=== PATIENT | male | born 1975 | race Caucasian/White ===

== ENCOUNTER 2022-02-14 11:46 | Inpatient (IN) | payer OTHER ==
[~2022-02-14] VITALS: Ht 172.7 cm; Wt 71.2 kg
--- NOTE | 2022-02-14 11:50 | NUR ---
RECIEVED PT 46 YRS MALE FROM [facility] BP AFTER COMPLET HD FOR TODAY SCHDULE FRIDAY , FRIDAY AND FRIDAY NO SOB OR CHEST PAIN OR DICOMFOR NOTED PERMACHTHTER ON LT SUBCLEAVIAN CLEAN WITH DRESSING INTACT AND HAMILTON
--- NOTE | 2022-02-14 12:00 | NUR ---
LT TOES AMPUTATION AND DRESSING INTCT AND DRY AND RT FOOT WOUND DRESSING DRANING
[2022-02-14 12:23] LABS: BASOPHILS # (AUTO) 0.1 K/uL (0.0-0.2); HEMATOCRIT 33 % (39-51); HEMOGLOBIN 10.4 g/dL (13.5-17.5); LYMPHOCYTES # (AUTO) 0.8 K/uL (0.8-4.8); LYMPHOCYTES % (AUTO) 13.7 % (20.0-44.0); MEAN CORPUSCULAR HGB CONC 31 g/dl (31.0-36.0); MEAN CORPUSCULAR VOLUME 93 fL (80-96); MONOCYTES # (AUTO) 0.4 K/uL (0.1-1.30); MONOCYTES % (AUTO) 6.3 % (2.0-12.0); NEUTROPHILS # (AUTO) 4.6 K/uL (1.8-8.9); PLATELET COUNT (AUTO) 182 K/uL (150-450); RED BLOOD CELL COUNT(AUTO) 3.55 MIL/uL (4.5-6.0); WHITE BLOOD COUNT (AUTO) 5.9 K/uL (4.3-11.0)
[2022-02-14 12:35] LABS: CALCIUM, SERUM 8.2 mg/dL (8.5-10.1); CREATININE 3.4 mg/dL (0.6-1.3); POTASSIUM 3.8 mmol/L (3.5-5.1)
[2022-02-14] MEDS ORDERED: FOLI0.8T23 PO (12:40)
[2022-02-14] MEDS ORDERED: TAMS-12 PO (12:40)
[2022-02-14] MEDS ORDERED: CALC667T2 PO (12:40)
[2022-02-14] MEDS ORDERED: LOSA50TA39 PO (12:40)
[2022-02-14] MEDS ORDERED: HYDR-4077 PO (12:40)
[2022-02-14] MEDS ORDERED: METF1000 PO (12:40)
[2022-02-14] MEDS ORDERED: PATI8.4P PO (12:40)
--- NOTE | 2022-02-14 13:00 | NUR ---
TONEY MACHADO SEND TO LAB
[2022-02-14] MEDS ORDERED: METO-357 PO (13:01)
[2022-02-14] MEDS ORDERED: ASCO500C17 PO (13:01)
[2022-02-14] MEDS ORDERED: POLY17PO4 PO (13:01)
[2022-02-14] MEDS ORDERED: SENN-18 PO (13:01)
[2022-02-14] MEDS ORDERED: ATOR40TA PO (13:01)
[2022-02-14] MEDS ORDERED: ASPI-1169 PO (13:01)
[2022-02-14] MEDS ORDERED: ZINC220T4 PO (13:01)
[2022-02-14] MEDS ORDERED: AMIN887L PO (13:01)
--- NOTE | 2022-02-14 13:13 | NUR ---
MOVE SHEET SUBMITTED.
[2022-02-14] MEDS ORDERED: hydrALAZINE HCL IV 20 MG VIAL IV ONE ×2 (13:30→14:00)
[2022-02-14] MEDS ORDERED: hydrALAZINE HCL IV 20 MG VIAL ONE (13:40)
--- NOTE | 2022-02-14 14:00 | NUR ---
RESTING CONTENUE AND MONITER PT VS PT AWAKE AND ALERT NO PAIN
--- NOTE | 2022-02-14 15:14 | NUR ---
WATING FOR HOSPITAL BED RESTING AT HIS TIME
--- NOTE | 2022-02-14 16:25 | NUR ---
PT CONDITION STABLE AWAKE AND FALLOW COMMAND
[2022-02-14] MEDS ORDERED: ACETAMINOPHEN 325 MG TABLET PO PRN (17:00)
[2022-02-14] MEDS ORDERED: Z GUARD REMEDY 4 OZ OINT TP PRN (17:00)
[2022-02-14] MEDS ORDERED: MAG HYDROX/AL HYDROX/SIMETH 30 ML UDC PO PRN (17:00)
[2022-02-14] MEDS ORDERED: METOPROLOL SUCCINATE 25 MG TAB.SR.24H PO SCH (17:00)
[2022-02-14] MEDS ORDERED: ONDANSETRON HCL/PF 4 MG/2 ML VIAL IVP PRN (17:00)
[2022-02-14] MEDS ORDERED: MAGNESIUM HYDROXIDE 30 ML UDC PO PRN (17:00)
[2022-02-14] MEDS ORDERED: LOSARTAN POTASSIUM 50 MG TABLET PO SCH (17:00)
--- NOTE | 2022-02-14 17:25 | NUR ---
WATING FOR TLEMETERY BED CONTENUE OBSERVE BP
[2022-02-14] MEDS ORDERED: hydrALAZINE HCL 50 MG TABLET PO SCH (18:00)
[2022-02-14] MEDS ORDERED: TOPIRAMATE 25 MG TABLET ONE (18:08)
[2022-02-14] MEDS: hydrALAZINE HCL 50 MG TABLET PO SCH ×2 (18:44→21:21)
[2022-02-14] MEDS: VALSARTAN 80 MG TABLET PO SCH (18:45)
--- NOTE | 2022-02-14 18:45 | NUR ---
ECCHOCRDOIGRAM DONE AT BED SIDE
[2022-02-14] MEDS: NITROGLYCERIN 30 GM TUBE TP SCH ×2 (18:46→21:20)
--- NOTE | 2022-02-14 18:50 | NUR ---
HAND OFF TO JEFFI RN TO ROOM 320-2 VIA GARNY BP STILL ON HIGH SIDE NO CHEST PAIN NO SOB
--- NOTE | 2022-02-14 19:30 | NUR ---
TELE/RN ADMITTING NOTE RECEIVED REPORT FROM SERGEY DOS SANTOS. PATIENT ARRIVED TO UNIT AT APPROX. 1930 VIA GURNEY AND 2 STAFF MEMBERS. PATIENT IS BEING ADMITTED WITH DX OF HTN URGENCY. PATIENT IS ALERT AND ORIENTED X 3-4. FORGETFUL AT TIMES. CONTINUES ON ROOM AIR WITH NO S/SX OF RESPIRATORY DISTRESS NOTED. IV ACCESS TO LEFT HAND #20G INTACT, PATENT AND SALINE LOCKED. WENCESLAO CATH NOTED TO RIGHT CHEST WALL FOR HD. DRESSING IS C/D/I. SKIN CHECK PERFORMED ON ADMISSION WITH WOUNDS NOTED TO RIGHT FOOT AND LEFT FOOT. DRESSINGS CHANGED AND ORDER PLACED FOR WOUND CONSULT. PATIENT ORIENTED TO ROOM, CALL LIGHT AND UNIT. TELE MONITOR PLACED WITH CURRENT READING SR. CALL LIGHT WITHIN REACH. ASPIRATION, FALL AND SAFETY PRECAUTIONS MAINTAINED. ALL NEEDS ATTENDED TO AT THIS TIME.
[2022-02-14 20:00] VITALS: BP 183/85
[2022-02-14] MEDS: SENNOSIDES 8.6 MG TABLET PO SCH (21:21)
[2022-02-14] MEDS: ATORVASTATIN 40 MG TABLET PO SCH (21:21)
[2022-02-14] MEDS: TAMSULOSIN 0.4 MG CAP.SR.24H PO SCH (21:21)
[2022-02-14] MEDS: hydrALAZINE HCL IV 20 MG VIAL IV PRN (23:54)
--- NOTE | 2022-02-15 00:03 | NUR ---
TELE/RN NOTE PATIENT CONTINUES WITH HIGH BP. CURRENT BP 177/82 - WILL ADMINISTER PRN IV HYDRALAZINE PER MD ORDERS.
[2022-02-15 01:00] VITALS: BP 166/72
[2022-02-15] MEDS: hydrALAZINE HCL 50 MG TABLET PO SCH ×4 (04:38→18:36)
[2022-02-15 06:14] LABS: CALCIUM, SERUM 8.1 mg/dL (8.5-10.1); CREATININE 4.3 mg/dL (0.6-1.3); MAGNESIUM 2.5 mg/dL (1.8-2.4); PHOSPHORUS 3.9 mg/dL (2.5-4.9); POTASSIUM 4.7 mmol/L (3.5-5.1)
[2022-02-15 06:36] LABS: BASOPHILS # (AUTO) 0.1 K/uL (0.0-0.2); BASOPHILS % (AUTO) 0.8 % (0.0-2.0); EOSINOPHILS % (AUTO) 0.7 % (0.0-6.0); HEMATOCRIT 33 % (39-51); HEMOGLOBIN 10.3 g/dL (13.5-17.5); LYMPHOCYTES # (AUTO) 0.9 K/uL (0.8-4.8); LYMPHOCYTES % (AUTO) 11.9 % (20.0-44.0); MEAN CORPUSCULAR HGB CONC 31 g/dl (31.0-36.0); MEAN CORPUSCULAR VOLUME 94 fL (80-96); MONOCYTES # (AUTO) 0.5 K/uL (0.1-1.30); MONOCYTES % (AUTO) 6.2 % (2.0-12.0); NEUTROPHILS % (AUTO) 80.4 % (43.0-81.0); PLATELET COUNT (AUTO) 202 K/uL (150-450); RED BLOOD CELL COUNT(AUTO) 3.49 MIL/uL (4.5-6.0); WHITE BLOOD COUNT (AUTO) 7.5 K/uL (4.3-11.0)
--- NOTE | 2022-02-15 06:40 | NUR ---
TELE/RN CLOSING NOTE PATIENT CURRENTLY SLEEPING IN BED. ALERT AND ORIENTED X 3. ABLE TO MAKE NEEDS KNOWN. DENIES PAIN AT THIS TIME. CONTINUES ON ROOM AIR WITH NO S/SX OF RESPIRATORY DISTRESS NOTED. IV ACCESS TO RIGHT HAND #20G INTACT, PATENT AND SALINE LOCKED. RIGHT CHEST WALL WENCESLAO CATH IN PLACE FOR HD. TELE MONITOR IN PLACE WITH CURRENT READING SR HR 64. CALL LIGHT WITHIN REACH. ASPIRATION, FALL AND SAFETY PRECAUTIONS MAINTAINED. WILL ENDORSE PLAN OF CARE TO ONCOMING SHIFT.
--- NOTE | 2022-02-15 07:46 | NUR ---
RN OPENING NOTE- PT SLEEPING IN BED. AWAKENED EASILY, ALERT AND ORIENTED X 3. ABLE TO MAKE NEEDS KNOWN. DENIES PAIN AT THIS TIME. CONTINUES ON ROOM AIR WITH NO S/SX OF RESPIRATORY DISTRESS NOTED. IV ACCESS TO RIGHT HAND #20G INTACT. RIGHT CHEST WALL WENCESLAO CATH IN PLACE FOR HD. TELE MONITOR IN PLACE WITH CURRENT READING SR HR 70. CALL LIGHT WITHIN REACH. ASPIRATION, FALL AND SAFETY PRECAUTIONS MAINTAINED. MONITOR / ASSIST
--- NOTE | 2022-02-15 08:38 | NUR ---
WOUND CARE CONSULT: PT EATING AT THIS TIME. REVIEWED CHART, NURSING DOCUMENTATION AND PHOTOS WHICH INDICATE BILATERAL LOWER EXTREMITY WOUNDS, PRESENT ON ADMISSION. DR ISSA NOTIFIED OF DPM CONSULT REQUEST. RECOMMENDATIONS MADE FOR SKIN PROTECTION. DISCUSSED WITH NURSING STAFF.
[2022-02-15] MEDS: NIFEdipine XL (30MG) 30 MG TAB PO SCH (09:25)
[2022-02-15] MEDS: POLYETHYLENE GLYCOL 3350 17 GM POWD.PACK PO SCH (09:25)
[2022-02-15] MEDS: ASPIRIN 81 MG TAB.CHEW PO SCH (09:25)
[2022-02-15] MEDS: METOPROLOL SUCCINATE 25 MG TAB.SR.24H PO SCH (09:26)
[2022-02-15] MEDS: NITROGLYCERIN 30 GM TUBE TP SCH ×2 (09:28→21:29)
[2022-02-15] MEDS: VALSARTAN 80 MG TABLET PO SCH (09:39)
--- NOTE | 2022-02-15 16:32 | NUR ---
RN NOTE- PT WOUND CARE COMPLETED PER ORDERS TO BILATERAL FOOT WOUNDS. TOLERATED WELL.
--- NOTE | 2022-02-15 18:56 | NUR ---
RN CLOSING NOTE- PT SLEEPING IN BED. ALERT AND ORIENTED X 3. ABLE TO MAKE NEEDS KNOWN. DENIES PAIN AT THIS TIME. CONTINUES ON ROOM AIR WITH NO S/SX OF RESPIRATORY DISTRESS NOTED. IV ACCESS TO RIGHT HAND #20G INTACT. RIGHT CHEST WALL WENCESLAO CATH IN PLACE FOR HD. HD TODAY - 2 LITRES REMOVED. TELE MONITOR IN PLACE WITH CURRENT READING SR HR 75. NPO AFTER MN, FOR WOUND DEBRIDEMENT IN AM. CALL LIGHT WITHIN REACH. ASPIRATION, FALL AND SAFETY PRECAUTIONS MAINTAINED. MONITOR / ASSIST
--- NOTE | 2022-02-15 19:20 | NUR ---
TELE/RN OPENING NOTE RECEIVED PATIENT RESTING IN BED. OBTUNDED AT BASELINE. NO S/SX OF RESPIRATORY DISTRESS NOTED. IV ACCESS TO RIGHT HAND #20G INTACT, PATENT AND SALINE LOCKED. CONTINUES ON TELE MONITOR WITH CURRENT READING SR. PATIENT TO BE NPO POST MIDNIGHT FOR PLANNED PROCEDURE IN AM. PATIENT AWARE AND AGREEABLE. CONSENT IN CHART. CALL LIGHT WITHIN REACH. ASPIRATION, FALL AND SAFETY PRECAUTIONS MAINTAINED. ALL NEEDS ATTENDED TO AT THIS TIME. Addendum: 02/16/22 at 0653 by CLARA NOLEN RN CORRECTION: PATIENT IS ALERT AND ORIENTED X 2-3. ABLE TO MAKE NEEDS KNOWN.
[2022-02-15 19:55] VITALS: BP 148/68
--- NOTE | 2022-02-15 21:00 | NUR ---
TELE/RN NOTE MRI CHECKLIST COMPLETED WITH PATIENT AND PLACED IN CHART.
[2022-02-15] MEDS: ATORVASTATIN 40 MG TABLET PO SCH (21:28)
[2022-02-15] MEDS: TAMSULOSIN 0.4 MG CAP.SR.24H PO SCH (21:28)
[2022-02-15] MEDS: SENNOSIDES 8.6 MG TABLET PO SCH (21:28)
[2022-02-16 00:30] VITALS: BP 140/62
[2022-02-16] MEDS: hydrALAZINE HCL 50 MG TABLET PO SCH ×4 (05:37→17:41)
--- NOTE | 2022-02-16 06:20 | NUR ---
TELE/RN CLOSING NOTE PATIENT CURRENTLY SLEEPING IN BED. ALERT AND ORIENTED X 2-3. CONTINUES ON ROOM AIR WITH NO S/SX OF RESPIRATORY DISTRESS NOTED. IV ACCESS TO RIGHT HAND #20G INTACT, PATENT AND SALINE LOCKED. CONTINUES ON TELE MONITOR WITH CURRENT READING SR. PATIENT HAS BEEN NPO SINCE MIDNIGHT FOR PLANNED PROCEDURE IN AM. CALL LIGHT WITHIN REACH. ASPIRATION, FALL AND SAFETY PRECAUTIONS MAINTAINED. WILL ENDORSE PLAN OF CARE TO ONCOMING SHIFT RN.
--- NOTE | 2022-02-16 07:57 | NUR ---
MS RN OPENING NOTES RECEIVED PATIENT CURRENTLY SLEEPING IN BED, EASILY AWAKEN. ALERT AND ORIENTED X2. ON ROOM AIR WITH NO S/SX OF RESPIRATORY DISTRESS NOTED. IV ACCESS TO RIGHT HAND #20G INTACT, PATENT AND SALINE LOCKED. PATIENT HAS BEEN NPO SINCE MIDNIGHT FOR PLANNED PROCEDURE IN AM. SAFETY PRECAUTIONS IN PLACE; BED IN LOW POSITION AND LOCKED, RAILS UP X2, CALL LIGHT WITHIN REACH. WILL CONTINUE TO MONITOR PATIENT.
[2022-02-16 08:00] VITALS: BP 177/74
[2022-02-16] MEDS: NIFEdipine XL (30MG) 30 MG TAB PO SCH (09:00)
[2022-02-16] MEDS: POLYETHYLENE GLYCOL 3350 17 GM POWD.PACK PO SCH (09:00)
[2022-02-16] MEDS: METOPROLOL SUCCINATE 25 MG TAB.SR.24H PO SCH (09:00)
[2022-02-16] MEDS: ASPIRIN 81 MG TAB.CHEW PO SCH (09:00)
[2022-02-16] MEDS: VALSARTAN 80 MG TABLET PO SCH (09:00)
[2022-02-16] MEDS: NITROGLYCERIN 30 GM TUBE TP SCH ×2 (10:10→21:43)
--- NOTE | 2022-02-16 12:25 | NUR ---
MS RN NOTES PATIENT IS CURRENTLY ON DIALYSIS AT THIS TIME. BP MEDS HELD.
[2022-02-16 16:00] VITALS: BP 181/92
[2022-02-16] MEDS: hydrALAZINE HCL IV 20 MG VIAL IV PRN ×2 (16:11→21:09)
--- NOTE | 2022-02-16 16:31 | NUR ---
MS RN NOTES PATIENT FINISHED DIALYSIS. PER HD NURSE, TOLERATED WELL; 2 L REMOVED. BP STILL HIGH 181/94 HR 67 PRN HYDRALAZINE 20MG/1ML ADMINISTERED. WILL REASSESS.
--- NOTE | 2022-02-16 19:29 | NUR ---
MS RN CLOSING NOTES PATIENT CURRENTLY SLEEPING IN BED, EASILY AWAKEN. ALERT AND ORIENTED X2. ON ROOM AIR WITH NO S/SX OF RESPIRATORY DISTRESS NOTED DURING THE SHIFT. IV ACCESS TO RIGHT WRISTG #22 INTACT, PATENT AND SALINE LOCKED. RCW PERMA CATH IN PLACE. ALL NEEDS ATTENDED DURING THE DAY. SAFETY PRECAUTIONS IN PLACE; BED IN LOW POSITION AND LOCKED, RAILS UP X2, CALL LIGHT WITHIN REACH. ENDORSED TO SUSTAINABILITY EXECUTIVE DIRECTOR NURSE FOR SHANNON.
[2022-02-16 20:00] VITALS: BP 177/99
--- NOTE | 2022-02-16 20:23 | NUR ---
MS RN OPENING NOTES: RECEIVED PATIENT SLEEP IN BED COMFORTABLY, BED IN LOW POSITION, CALL LIGHTS WITHIN REACH, NO COMPLAIN OF PAIN AND DISCOMFORT AT THIS TIME, ON ROOM AIR SATURATING WELL, WITH IV LINE AT RWRIST #22 SL, WITH RCW WENCESLAO CATH HD DONE WITH 2 LITERS REMOVED, PATIENT KEPT CLEAN AND DRY ALL NEEDS MET WILL CONTINUE TO MONITOR.
[2022-02-16] MEDS: ATORVASTATIN 40 MG TABLET PO SCH (21:43)
[2022-02-16] MEDS: SENNOSIDES 8.6 MG TABLET PO SCH (21:43)
[2022-02-16] MEDS: TAMSULOSIN 0.4 MG CAP.SR.24H PO SCH (21:44)
[2022-02-17] MEDS: hydrALAZINE HCL 50 MG TABLET PO SCH ×4 (00:23→18:14)
[2022-02-17] MEDS: hydrALAZINE HCL IV 20 MG VIAL IV PRN (03:54)
[2022-02-17 05:57] LABS: BASOPHILS % (AUTO) 0.6 % (0.0-2.0); EOSINOPHILS % (AUTO) 0.5 % (0.0-6.0); HEMATOCRIT 34 % (39-51); LYMPHOCYTES # (AUTO) 0.8 K/uL (0.8-4.8); LYMPHOCYTES % (AUTO) 10.3 % (20.0-44.0); MEAN CORPUSCULAR HGB CONC 33 g/dl (31.0-36.0); MEAN CORPUSCULAR VOLUME 91 fL (80-96); MONOCYTES # (AUTO) 0.5 K/uL (0.1-1.30); MONOCYTES % (AUTO) 6.7 % (2.0-12.0); NEUTROPHILS # (AUTO) 6.3 K/uL (1.8-8.9); NEUTROPHILS % (AUTO) 81.9 % (43.0-81.0); PLATELET COUNT (AUTO) 207 K/uL (150-450); RED BLOOD CELL COUNT(AUTO) 3.72 MIL/uL (4.5-6.0); WHITE BLOOD COUNT (AUTO) 7.7 K/uL (4.3-11.0)
[2022-02-17 06:08] LABS: CALCIUM, SERUM 7.8 mg/dL (8.5-10.1); CREATININE 3.3 mg/dL (0.6-1.3); POTASSIUM 4.3 mmol/L (3.5-5.1)
--- NOTE | 2022-02-17 06:35 | NUR ---
RN CLOSING NOTES: PATIENT SLEEP IN BED COMFORTABLY, AROUSABLE TO VERBAL STIMULI, BED IN LOW POSITION, CALL LIGHTS WITHIN REACH, NO COMPLAIN OF PAIN AND DISCOMFORT AT THIS TIME, ON ROOM AIR SATURATING WELL, WITH IV LINE AT RT WRIST #22 SL, WITH RT CHEST WALL WENCESLAO CATH DIALYSIS DONE YESTERDAY WITH 2LTR OUTPUT, PATIENT HAS BILATERAL EYE BLINDNESS, BUT ABLE TO COOPERATE,KEPT CLEAN AND DRY ALL NEEDS MET, ENDORSE TO INCOMING SHIFT.
--- NOTE | 2022-02-17 07:00 | NUR ---
MS RN OPENING NOTES PATIENT LAYING IN BED, A/O X 4, ABLE TO MAKE NEEDS KNOWN. R WRIST 22G SL CLEAN, INTACT, AND FLUSHING WELL. TOLERATING WELL ON ROOM AIR WITH NO S/S RESPIRATORY DISTRESS OR SOB. NO COMPLAINTS OF PAIN OR DISCOMFORT AT THIS TIME. SAFETY MEASURES IN PLACE: BED IN LOWEST LOCKED POSITION, SIDE RAILS UP X 2, CALL LIGHT WITHIN REACH. WILL CONTINUE TO MONITOR.
[2022-02-17 08:00] VITALS: BP 181/85
[2022-02-17] MEDS: NIFEdipine XL (30MG) 30 MG TAB PO SCH (08:17)
[2022-02-17] MEDS: METOPROLOL SUCCINATE 25 MG TAB.SR.24H PO SCH (08:18)
[2022-02-17] MEDS: POLYETHYLENE GLYCOL 3350 17 GM POWD.PACK PO SCH (08:18)
[2022-02-17] MEDS: VALSARTAN 80 MG TABLET PO SCH (08:19)
[2022-02-17] MEDS: ASPIRIN 81 MG TAB.CHEW PO SCH (08:19)
[2022-02-17] MEDS: NITROGLYCERIN 30 GM TUBE TP SCH ×2 (08:32→21:46)
--- NOTE | 2022-02-17 09:12 | NUR ---
RN NOTES PATIENT NOTED WITH BP OF 181/85, HR 78 THIS MORNING. ALL MEDICATIONS ADMINISTERED ORDERED.
--- NOTE | 2022-02-17 19:00 | NUR ---
MS RN CLOSING NOTES PATIENT LAYING IN BED, A/O X 4, ABLE TO MAKE NEEDS KNOWN. R WRIST 22G SL CLEAN, INTACT, AND FLUSHING WELL. TOLERATING WELL ON ROOM AIR WITH NO S/S RESPIRATORY DISTRESS OR SOB. NO COMPLAINTS OF PAIN OR DISCOMFORT AT THIS TIME. SAFETY MEASURES IN PLACE: BED IN LOWEST LOCKED POSITION, SIDE RAILS UP X 2, CALL LIGHT WITHIN REACH. ALL NEEDS MET. WILL ENDORSE TO BOW MAKER CUSTOM FOR SHANNON.
[2022-02-17 20:00] VITALS: BP 133/72
--- NOTE | 2022-02-17 20:24 | NUR ---
MS RN OPENING NOTES: RECEIVED PATIENT SLEEP IN BED COMFORTABLY, AROUSABLE TO VERBAL STIMULI, BED IN LOW POSITION, CALL LIGHTS WITHIN REACH, NO COMPLAIN OF PAIN AND DISCOMFORT AT THIS TIME, PATIENT IS A/OX2-3, BLIND ON BED REST, WITH IV LINE AT R WRIST #22SL AND RCW HD PORTACATH, CLEAN AND NO BLEEDING WAS OBSERVED, PATIENT KEPT CLEAN AND DRY ALL NEEDS MET WILL CONTINUE TO MONITOR.
[2022-02-17] MEDS: TAMSULOSIN 0.4 MG CAP.SR.24H PO SCH (21:46)
[2022-02-17] MEDS: ATORVASTATIN 40 MG TABLET PO SCH (21:46)
[2022-02-17] MEDS: SENNOSIDES 8.6 MG TABLET PO SCH (21:46)
[2022-02-18] MEDS: hydrALAZINE HCL 50 MG TABLET PO SCH ×4 (00:12→17:22)
--- NOTE | 2022-02-18 07:29 | NUR ---
RN OPENING NOTE: PATIENT ASLEEP IN BED, AWAKENS EASILY, AO X PERSON PLACE, BED IN LOW POSITION, CALL LIGHT WITHIN REACH, NO COMPLAINT OF PAIN, IV LINE AT R WRIST #22SL AND RCW HD PORTACATH, CLEAN AND NO BLEEDING WAS OBSERVED, PATIENT KEPT CLEAN AND DRY ALL NEEDS MET WILL CONTINUE TO MONITOR / ASSIST
[2022-02-18 08:00] VITALS: BP 158/79
[2022-02-18] MEDS: ASPIRIN 81 MG TAB.CHEW PO SCH (08:47)
[2022-02-18] MEDS: POLYETHYLENE GLYCOL 3350 17 GM POWD.PACK PO SCH (08:47)
[2022-02-18] MEDS: VALSARTAN 80 MG TABLET PO SCH (08:48)
[2022-02-18] MEDS: NIFEdipine XL (30MG) 30 MG TAB PO SCH (08:48)
[2022-02-18] MEDS: METOPROLOL SUCCINATE 25 MG TAB.SR.24H PO SCH (08:48)
[2022-02-18] MEDS: NITROGLYCERIN 30 GM TUBE TP SCH ×2 (08:49→21:35)
[2022-02-18] MEDS ORDERED: NIFEdipine XL (30MG) 30 MG TAB PO SCH (10:00)
[2022-02-18 16:00] VITALS: BP 162/75
--- NOTE | 2022-02-18 16:13 | NUR ---
RN NOTE-WOUND CARE TO BILATERAL FEET COMPLETED PER ORDERS. TOLERATED WELL.
--- NOTE | 2022-02-18 18:42 | NUR ---
RN CLOSING NOTE: PATIENT QUIET, ORIENTED X PERSON PLACE, BED IN LOW POSITION, CALL LIGHT WITHIN REACH, NO COMPLAINT OF PAIN, IV LINE AT R WRIST #22SL AND RCW HD PORTACATH, PATIENT KEPT CLEAN AND DRY ALL NEEDS MET WILL CONTINUE TO MONITOR / ASSIST
--- NOTE | 2022-02-18 19:15 | NUR ---
RN NOTE PT RESTING IN BED, A/OX2, DENIES PAIN AT THIS TIME. RESPIRATIONS EVEN/UNLABORED. IV SITE: R-HAND #22G INTACT/PATENT/FLUSHES WELL. RCW HD CATH IN PLACE/DRESSING INTACT. PT IN NO ACUTE DISTRESS. SAFETY MEASURES IN PLACE, BED IN LOWEST LOCKED POSITION, S/R UPX2, CALL LIGHT WITHIN REACH. WILL CONT TO MONITOR.
[2022-02-18 20:00] VITALS: BP 122/63
[2022-02-18] MEDS: ATORVASTATIN 40 MG TABLET PO SCH (21:34)
[2022-02-18] MEDS: SENNOSIDES 8.6 MG TABLET PO SCH (21:34)
[2022-02-18] MEDS: TAMSULOSIN 0.4 MG CAP.SR.24H PO SCH (21:34)
[2022-02-19] MEDS: hydrALAZINE HCL 50 MG TABLET PO SCH ×4 (00:41→17:07)
[2022-02-19 06:16] LABS: BASOPHILS # (AUTO) 0.1 K/uL (0.0-0.2); BASOPHILS % (AUTO) 0.9 % (0.0-2.0); EOSINOPHILS % (AUTO) 0.8 % (0.0-6.0); HEMATOCRIT 33 % (39-51); HEMOGLOBIN 10.8 g/dL (13.5-17.5); LYMPHOCYTES # (AUTO) 1.1 K/uL (0.8-4.8); LYMPHOCYTES % (AUTO) 16.5 % (20.0-44.0); MEAN CORPUSCULAR HGB CONC 33 g/dl (31.0-36.0); MEAN CORPUSCULAR VOLUME 92 fL (80-96); MONOCYTES # (AUTO) 0.6 K/uL (0.1-1.30); MONOCYTES % (AUTO) 8.5 % (2.0-12.0); NEUTROPHILS # (AUTO) 4.9 K/uL (1.8-8.9); NEUTROPHILS % (AUTO) 73.3 % (43.0-81.0); PLATELET COUNT (AUTO) 208 K/uL (150-450); RED BLOOD CELL COUNT(AUTO) 3.58 MIL/uL (4.5-6.0); WHITE BLOOD COUNT (AUTO) 6.7 K/uL (4.3-11.0)
[2022-02-19 06:22] LABS: CALCIUM, SERUM 8.4 mg/dL (8.5-10.1); CREATININE 5.8 mg/dL (0.6-1.3); POTASSIUM 4.4 mmol/L (3.5-5.1)
--- NOTE | 2022-02-19 06:52 | NUR ---
RN NOTE PT RESTING IN BED, EASILY AROUSABLE TO STIMULI. NO C/O PAIN AT THIS TIME. PT SLEPT WELL DURING THE NIGHT WITHOUT ANY DISTRESS. ALL NEEDS ATTENDED TO. SAFETY MEASURES MAINTAINED.
--- NOTE | 2022-02-19 07:40 | NUR ---
MS RN OPENING NOTES RECEIVED PT SLEEPING IN BED, A/O X4. PATIENT IS EASILY AROUSABLE TO ANY STIMULI. NO S/S OF DISCOMFORT, AND PAIN AT THIS MOMENT. PT IS IN ROOM AIR, AND NO SIGNS OF DISTRESS AT THIS TIME. SAFETY MEASURES INITIATED. WILL CONTINUE TO MONITOR FOR SHANNON.
[2022-02-19 08:00] VITALS: BP 167/73
[2022-02-19] MEDS: VALSARTAN 80 MG TABLET PO SCH ×2 (09:00→10:12)
[2022-02-19] MEDS: NIFEdipine XL (30MG) 30 MG TAB PO SCH ×2 (09:00→10:11)
[2022-02-19] MEDS: NITROGLYCERIN 30 GM TUBE TP SCH ×3 (09:00→21:17)
[2022-02-19] MEDS: METOPROLOL SUCCINATE 25 MG TAB.SR.24H PO SCH ×3 (09:00→16:33)
[2022-02-19] MEDS: POLYETHYLENE GLYCOL 3350 17 GM POWD.PACK PO SCH (10:12)
[2022-02-19] MEDS: ASPIRIN 81 MG TAB.CHEW PO SCH (10:13)
--- NOTE | 2022-02-19 10:27 | NUR ---
MS RN NOTE AM B/P MEDS ARE NOT GIVEN D/T PATIENT CURRENTLY IN DIALYSIS.
--- NOTE | 2022-02-19 12:38 | NUR ---
MS RN NOTES B/P MED CANNOT BE ADMINISTERED, PATIENT IS CURRENTLY DOING A DIALYSIS.
[2022-02-19 16:00] VITALS: BP 183/83
[2022-02-19] MEDS ORDERED: IV NS 0.9% 0 ML IV ONE (17:36)
[2022-02-19] MEDS ORDERED: IOHEXOL-350 100 ML VIAL IV ONE (17:36)
[2022-02-19] MEDS ORDERED: METOPROLOL TARTRATE INJ 5 MG/5 ML AMPUL ONE (17:45)
[2022-02-19] MEDS ORDERED: NITROGLYCERIN 0.4 MG/TAB BOTTLE ONE (17:45)
--- NOTE | 2022-02-19 17:51 | NUR ---
MS RN NOTES PATIENT GO FOR CT ANGIOGRAM HEART @1750.
--- NOTE | 2022-02-19 17:58 | NUR ---
CTA NOTES PATIENT REFUSED CTA PROCEDURE PER MD ORDERED. EXPLAINED RISK AND BENEFIT X3 WITH DELIO, PRESSER FIRST. PUNEET ROBERT AWARE.
--- NOTE | 2022-02-19 19:38 | NUR ---
MS RN OPENING NOTES PATIENT RECEIVED SLEEPING IN BED COMFORTABLY, BREATHING EVEN AND UNLABORED; NO SOB NOTED; NO DISTRESS NOTED; PATIENT EASILY AROUSABLE, A/OX3; PATIENT ABLE TO MAKE NEEDS KNOWN; PATIENT IS BLIND; PER AM SHIFT, UNSURE IF CONSENTS SIGNED FOR PROCEDURE OF DEBRIDEMENT OF WOUNDS; WILL FOLLOW UP; PATIENT CURRENTLY NPO; R AC #20 INTACT AND PATENT, RCW HD CATH NOTED; SAFETY PRECAUTIONS IMPLEMENTED; BED LOCKED IN LOW POSITION; SIDE RAILSX2, CALL LIGHT WITHIN REACH; WILL CONT TO MONITOR
--- NOTE | 2022-02-19 19:52 | NUR ---
MS RN CLOSING NOTES PATIENT LAYING IN BED, A/O X 4, ABLE TO MAKE NEEDS KNOWN. R AC 20G SL CLEAN, INTACT, AND FLUSHING WELL. TOLERATING WELL ON ROOM AIR WITH NO S/S RESPIRATORY DISTRESS OR SOB. NO COMPLAINTS OF PAIN OR DISCOMFORT AT THIS TIME. PATIENT REFUSED CT ANGIO HEART PROCEDURE. SAFETY MEASURES IN PLACE: BED IN LOWEST LOCKED POSITION, SIDE RAILS UP X 2, CALL LIGHT WITHIN REACH. ALL NEEDS MET. WILL ENDORSE TO WEB CONTENT EXECUTIVE FOR SHANNON.
[2022-02-19 20:00] VITALS: BP 167/83
[2022-02-19] MEDS: ATORVASTATIN 40 MG TABLET PO SCH (21:17)
[2022-02-19] MEDS: TAMSULOSIN 0.4 MG CAP.SR.24H PO SCH (21:17)
[2022-02-19] MEDS: SENNOSIDES 8.6 MG TABLET PO SCH (21:17)
--- NOTE | 2022-02-19 21:28 | NUR ---
MS RN NOTES PATIENT PREVIOUSLY AGREED FOR DEBRIDEMENT PROCEDURE BUT WOULD LIKE MORE INFORMATION PRIOR TO RE-SIGNING CONSENT; PATIENT SIGNED OFF 02/15/22, PER PROTOCOL, CONSENTS MUST BE SIGNED AT LEAST 24 HOURS BEFORE PROCEDURE; PATIENT WOULD LIKE TO SPEAK WITH MD REGARDING THIS; PATIENT WAS ASKED IF OK TO PROCEED FOR PROCEDURE IN AM, PATIENT STATED, "I'M NOT SURE, CAN I TALK TO THE DOCTOR ABOUT THIS?" CHARGE NURSE AWARE; WILL CONT TO MONITOR
[2022-02-20] MEDS: hydrALAZINE HCL 50 MG TABLET PO SCH ×4 (00:07→17:18)
--- NOTE | 2022-02-20 00:24 | NUR ---
MS RN NOTE PATIENT AGREED FOR PROCEDURE IN AM, UNDERSTOOD RISKS AND BENEFITS; PATIENT WANTED TO SPEAK TO SOMEONE REGARDING PROCEDURE IN ITALIAN; TRANSLATION DONE, CONSENTS SIGNED AND WITNESSED BY 2 RNS D/T PATIENT BILATERAL EYE BLINDNESS; CONSENTS PLACED IN CHART; CHARGE NURSE MADE AWARE
--- NOTE | 2022-02-20 06:57 | NUR ---
MS RN CLOSING NOTES PATIENT SLEEPING IN BED COMFORTABLY, BREATHING EVEN AND UNLABORED; NO SOB NOTED; NO DISTRESS NOTED; PATIENT EASILY AROUSABLE, A/OX3; PATIENT IS BLIND; PER AM SHIFT, CONSENTS SIGNED FOR PROCEDURE OF DEBRIDEMENT OF WOUNDS; AWAITING OR FOR CHAIN TENDER, PER CHARGE NURSE PATIENT SCHEDULED 729, WILL INFORM DAY SHIFT; PATIENT CURRENTLY NPO; R AC #20 INTACT AND PATENT, RCW HD CATH NOTED; SAFETY PRECAUTIONS IMPLEMENTED; BED LOCKED IN LOW POSITION; SIDE RAILSX2, CALL LIGHT WITHIN REACH; WILL ENDORSE SHANNON TO ONCOMING SHIFT
--- NOTE | 2022-02-20 07:30 | NUR ---
MS RN OPENING NOTES RECEIVED PATIENT SLEEPING COMFORTABLY; A/O X 3 AND EASILY AROUSABLE. NO SOB AND DISTRESS NOTED, BREATHING EVEN AND UNLABORED. PATIENT IS BLIND. PATIENT IS SCHEDULED FOR AM SURGERY (EXCISIONAL DEBRIDEMENT OF ULCER LEFT FOOT AND RIGHT FOOT WITH BONE BIOPSY, POSSIBLE AMPUTATION OF TOES. ALL CONSENT SIGNED FOR THE SCHEDULED PROCEDURES. PATIENT IN CURRENTLY ON NPO. RCW HD CATH & R AC #20G INTACT AND PATENT. SAFETY PRECAUTIONS IMPLEMENTED: BED LOCKED IN LOW POSITION; SIDE RAILSX2, CALL LIGHT WITHIN REACH. WILL CONTINUE TO MONITOR FOR SHANNON.
[2022-02-20 07:41] LABS: BASOPHILS # (AUTO) 0.1 K/uL (0.0-0.2); BASOPHILS % (AUTO) 0.8 % (0.0-2.0); EOSINOPHILS % (AUTO) 0.8 % (0.0-6.0); HEMATOCRIT 33 % (39-51); HEMOGLOBIN 10.8 g/dL (13.5-17.5); LYMPHOCYTES % (AUTO) 15.8 % (20.0-44.0); MEAN CORPUSCULAR HGB CONC 32 g/dl (31.0-36.0); MEAN CORPUSCULAR VOLUME 92 fL (80-96); MONOCYTES # (AUTO) 0.4 K/uL (0.1-1.30); MONOCYTES % (AUTO) 7.3 % (2.0-12.0); NEUTROPHILS # (AUTO) 4.6 K/uL (1.8-8.9); NEUTROPHILS % (AUTO) 75.3 % (43.0-81.0); PLATELET COUNT (AUTO) 204 K/uL (150-450); RED BLOOD CELL COUNT(AUTO) 3.64 MIL/uL (4.5-6.0); WHITE BLOOD COUNT (AUTO) 6.1 K/uL (4.3-11.0)
[2022-02-20] MEDS ORDERED: ROCURONIUM BROMIDE 50 MG/5 ML ONE (07:46)
[2022-02-20] MEDS ORDERED: FENTANYL PF 100MCG/2ML AMPUL ONE ×2 (07:46→10:13)
[2022-02-20 07:55] LABS: CALCIUM, SERUM 8.3 mg/dL (8.5-10.1); CREATININE 4.4 mg/dL (0.6-1.3); POTASSIUM 4.2 mmol/L (3.5-5.1)
[2022-02-20 08:00] VITALS: BP 161/71
--- NOTE | 2022-02-20 08:00 | NUR ---
MS RN NOTES PATIENT GOT PICKED UP BY OR PERSONNEL FOR SCHEDULED AM SURGERY (EXCISIONAL DEBRIDEMENT OF ULCER LEFT FOOT AND RIGHT FOOT WITH BONE BIOPSY, POSSIBLE AMPUTATION OF TOES @0745. VITALS ARE WITHIN NORMAL LIMITS AND STABLE TO GO. ALL CONSENTS WERE SIGNED BY (2) TOOL GRINDER OPERATOR SURFACE NURSES D/T BLIND CONDITION OF THE PATIENT. ALL AM MEDICATION WILL BE HELD D/T NPO STATUS FOR PROCEDURES.
[2022-02-20] MEDS ORDERED: DEXTROSE 50%-WATER 50 ML DISP.SYRIN ONE (08:06)
[2022-02-20] MEDS ORDERED: LIDOCAINE 1% INJ 50 ML MDV IJ ONE (08:27)
[2022-02-20] MEDS: VALSARTAN 80 MG TABLET PO SCH (09:00)
[2022-02-20] MEDS: POLYETHYLENE GLYCOL 3350 17 GM POWD.PACK PO SCH (09:00)
[2022-02-20] MEDS: NITROGLYCERIN 30 GM TUBE TP SCH ×2 (09:00→21:06)
[2022-02-20] MEDS: ASPIRIN 81 MG TAB.CHEW PO SCH (09:00)
[2022-02-20] MEDS: METOPROLOL SUCCINATE 25 MG TAB.SR.24H PO SCH (09:00)
[2022-02-20] MEDS: NIFEdipine XL (30MG) 30 MG TAB PO SCH (09:00)
--- NOTE | 2022-02-20 09:00 | NUR ---
MS RN NOTES AM MEDICATIONS WERE NOT GIVEN, SINCE PATIENT WENT TO OR FOR SURGERY.
[2022-02-20] MEDS ORDERED: THROMBIN (BOVINE) 5,000 UNITS VIAL TP ONE (09:07)
[2022-02-20 10:46] VITALS: BP 140/75
--- NOTE | 2022-02-20 11:00 | NUR ---
MS RN NOTES PATIENT CAME BACK FROM OR S/P EXCISIONAL DEBRIDEMENT OF ULCER LEFT & RIGHT FOOT WITH BONE BIOPSY, RIGHT 3RD TOE AMPUTATION. RECEIVED REPORT FROM IKE, RN @ 4578. PATIENT'S V/S IS WITHIN NORMAL RANGE: 95%, RR 18, B/P 140/75, HR 68, & TEMP 97.6. PATIENT IS AWAKE AND EASILY AROUSABLE IN BED. WILL CONTINUE TO MONITOR FOR SHANNON.
[2022-02-20 16:21] VITALS: BP 157/82
--- NOTE | 2022-02-20 19:11 | NUR ---
MS RN CLOSING NOTES PATIENT IS COMFORTABLY LYING IN BED, AND ABLE TO VERBALIZED NEEDS. A/O X3. NO C/O PAIN OR DISCOMFORT. BREATHING EVEN AND NON-LABORED ON ROOM AIR. NO ABDOMINAL DISTENTION OR TENDERNESS ON PALPATION. HAS RIGHT AC 20G SL IV ACCESS #20G & RCW HD CATH. RIGHT AND LEFT FEET DRESSING WRAPPED WITH ACED BANDAGE; CLEAN, DRY AND INTACT; NO BLEEDING NOTED AT THIS TIME. ALL NEEDS ATTENDED. PATIENT HAD AM SURGERY, V/S WITHIN NORMAL LIMITS. ALL NEEDS WERE MET. SAFETY PRECAUTIONS IN PLACE: BED LOW AND LOCKED, SIDE RAILS UP X2, CALL LIGHT WITHIN REACH. WILL ENDORSE TO INCOMING SHIFT FOR SHANNON.
--- NOTE | 2022-02-20 19:40 | NUR ---
MS/RN OPENING NOTE RECEIVED PATIENT SLEEPING IN BED. ALERT AND ORIENTED X 3. ABLE TO MAKE NEEDS KNOWN. DENIES PAIN AT THIS TIME. CONTINUES ON ROOM AIR WITH NO S/SX OF RESPIRATORY DISTRESS NOTED. IV ACCESS TO RIGHT AC #20G INTACT, PATENT AND SALINE LOCKED. RIGHT CHEST WALL WENCESLAO CATH IN PLACE FOR HD. DRESSING TO RIGHT FOOT SURGICAL SITE CLEAN, DRY AND INTACT. CALL LIGHT WITHIN REACH. ASPIRATION, FALL AND SAFETY PRECAUTIONS MAINTAINED. ALL NEEDS ATTENDED TO AT THIS TIME.
[2022-02-20 20:00] VITALS: BP 124/65
[2022-02-20] MEDS: SENNOSIDES 8.6 MG TABLET PO SCH (21:06)
[2022-02-20] MEDS: TAMSULOSIN 0.4 MG CAP.SR.24H PO SCH (21:06)
[2022-02-20] MEDS: ATORVASTATIN 40 MG TABLET PO SCH (21:06)
[2022-02-21] MEDS: hydrALAZINE HCL 50 MG TABLET PO SCH ×4 (01:13→17:08)
--- NOTE | 2022-02-21 06:30 | NUR ---
MS/RN CLOSING NOTE PATIENT CURRENTLY SLEEPING IN BED. ALERT AND ORIENTED X 3. ABLE TO MAKE NEEDS KNOWN. DENIES PAIN AT THIS TIME. CONTINUES ON ROOM AIR WITH NO S/SX OF RESPIRATORY DISTRESS NOTED. IV ACCESS TO RIGHT AC #20G INTACT, PATENT AND SALINE LOCKED. RIGHT CHEST WALL HD CATH IN PLACE. DRESSING TO RIGHT FOOT SURGICAL SITE WITH MINIMAL AMOUNT OF BLEEDING NOTED. MD VINSON AWARE. CALL LIGHT WITHIN REACH. ASPIRATION, FALL AND SAFETY PRECAUTIONS MAINTAINED. ALL NEEDS ATTENDED TO AT THIS TIME. WILL ENDORSE PLAN OF CARE TO ONCOMING SHIFT RN.
--- NOTE | 2022-02-21 07:52 | NUR ---
RN OPENING NOTE PATIENT AWAKE IN BED RESTING, A/O X3. NO S/S OF PAIN NOTED AT THIS TIME. ON ROOM AIR, NO DISTRESS OR SHORTNESS OF BREATH NOTED. IV ACCESS RAC #18G, INTACT, PATENT AND FLUSHING WELL. FALL AND SAFETY MEASURES IN PLACE, BED ALARM ON BED IN LOW AND LOCK POSITION, CALL LIGHT AND TABLE WITHIN EASY REACH, SIDE RAILS UP X2. WILL CONTINUE TO MONITOR.
[2022-02-21 08:00] VITALS: BP 132/60
[2022-02-21] MEDS: POLYETHYLENE GLYCOL 3350 17 GM POWD.PACK PO SCH (09:07)
[2022-02-21] MEDS: NIFEdipine XL (30MG) 30 MG TAB PO SCH (09:08)
[2022-02-21] MEDS: METOPROLOL SUCCINATE 25 MG TAB.SR.24H PO SCH (09:08)
[2022-02-21] MEDS: VALSARTAN 80 MG TABLET PO SCH (09:09)
[2022-02-21] MEDS: ASPIRIN 81 MG TAB.CHEW PO SCH (09:09)
[2022-02-21] MEDS: NITROGLYCERIN 30 GM TUBE TP SCH (09:11)
[2022-02-21] MEDS ORDERED: METO25TA4 PO (09:16)
[2022-02-21] MEDS ORDERED: NIFE-35 PO (09:16)
--- NOTE | 2022-02-21 13:27 | NUR ---
RN NOTE PATIENT 1200 HYDRALAZINE WAS NOT GIVEN, PATIENT IS SCHEDULE FOR DIALYSIS TODAY, BLOOD PRESSURE 132/61, PULSE 75, WILL CONTINUE TO MONITOR.
[2022-02-21 16:00] VITALS: BP 111/60
--- NOTE | 2022-02-21 16:43 | NUR ---
RN NOTE PATIENT HAD DIALYSIS TODAY, OUTPUT 1.5 L, TOLERATED WELL.
[2022-02-21 17:08] VITALS: BP 111/60
--- NOTE | 2022-02-21 19:32 | NUR ---
FOOD AND DRUG INSPECTOR NOTE PATIENT DISCHARGE IN STABLE CONDITION, A/O X3. V/S TAKEN, STABLE AND RECORDED. NO IV ACCESS. SKIN ASSESSMENT DONE AND PICTURES TAKEN. NAME ARM BAND REMOVED. ALL BELONGINGS CHECKED AND SIGNED. HEALTH TEACHING AND DISCHARGE INSTRUCTIONS GIVEN TO PATIENT AND NURSE AT FACILITY AND VERBALIZED UNDERSTANDING. REPORT GIVEN TO NURSE(LISA) AT [facility]. PATIENT LEFT UNIT VIA GURNEY WITH NO SIGNS OF DISTRESS, ACCOMPANIED BY PARAMEDICS. CHARGE NURSE AWARE OF DISCHARGED.
== END 2022-02-21 16:30 | DRG 180 ==
LOC: ER 11:58 → TRANSITION 14:12 → TELE 20:05 → MED 02-15 16:34
PROVIDERS: ADMIT Internal Medicine; ATTEND Internal Medicine
PROC: 5A1D70Z Performance of Urinary Filtration, Intermittent, Less than 6 Hours Per Day (ICD-10-PCS; 2022-02-15)
PROC: 0Y6T0Z0 Detachment at Right 3rd Toe, Complete, Open Approach (ICD-10-PCS; principal; 2022-02-20)
PROC: 0QBP0ZZ Excision of Left Metatarsal, Open Approach (ICD-10-PCS; 2022-02-20)
PROC: 0QBN0ZZ Excision of Right Metatarsal, Open Approach (ICD-10-PCS; 2022-02-20)
DX: I16.0 Hypertensive urgency (principal); G93.41 Metabolic encephalopathy; N18.6 End stage renal disease; E11.52 Type 2 diabetes mellitus with diabetic peripheral angiopathy with gangrene; M86.8X7 Other osteomyelitis, ankle and foot; L97.519 Non-pressure chronic ulcer of other part of right foot with unspecified severity; E11.22 Type 2 diabetes mellitus with diabetic chronic kidney disease; I13.2 Hypertensive heart and chronic kidney disease with heart failure and with stage 5 chronic kidney disease, or end stage renal disease; Z99.2 Dependence on renal dialysis; E11.69 Type 2 diabetes mellitus with other specified complication; E11.42 Type 2 diabetes mellitus with diabetic polyneuropathy; E11.622 Type 2 diabetes mellitus with other skin ulcer; L97.529 Non-pressure chronic ulcer of other part of left foot with unspecified severity; N40.0 Benign prostatic hyperplasia without lower urinary tract symptoms; E11.621 Type 2 diabetes mellitus with foot ulcer; E11.65 Type 2 diabetes mellitus with hyperglycemia; E78.5 Hyperlipidemia, unspecified; D64.9 Anemia, unspecified; Z79.82 Long term (current) use of aspirin; Z79.84 Long term (current) use of oral hypoglycemic drugs; Z79.899 Other long term (current) drug therapy; I50.9 Heart failure, unspecified; H54.3 Unqualified visual loss, both eyes; J98.11 Atelectasis; Z87.891 Personal history of nicotine dependence; E83.42 Hypomagnesemia; Z89.422 Acquired absence of other left toe(s)
CPT/HCPCS: 36415; 70450-TC; 71045-TC; 73630-TC; 73718-TC; 80048-TC; 80061-TC; 82962-TC; 83735-TC; 84100-TC; 84484-TC; 85025-TC; 85610-TC; 85730-TC; 86706; 87070-TC; 87075-TC; 87081-TC; 87186-TC; 87340; 90935-TC; 93307-TC; A6253; A6403; G0378; J0360; J0690; J1100; J2370; J2405; J2704; J3010; J3490; J7030; J7050; Q9967

== ENCOUNTER 2022-05-21 08:45 | Emergency (ER) | payer OTHER ==
[~2022-05-21] VITALS: Ht 167.6 cm; Wt 69.4 kg
[~2022-05-21 08:45] MED LIST: AMIN887L PO; ASCO500C17 PO; ASPI-1169 PO; ATOR40TA PO; FOLI0.8T23 PO; HYDR-4077 PO; LOSA50TA39 PO; METO25TA4 PO; NIFE-35 PO; PATI8.4P PO; POLY17PO4 PO; SENN-18 PO; TAMS-12 PO; ZINC220T4 PO
--- NOTE | 2022-05-21 09:00 | NUR ---
RECEVED PT 47 YRS MALE CAME BY MAGI S/P INVOLING IN TA DINESES ANY PAIN HERE FOR MEDICALE CLEANESS FOR HD TODY
--- NOTE | 2022-05-21 09:14 | NUR ---
SEEN BY DR. MEI
--- NOTE | 2022-05-21 09:40 | NUR ---
[facility] CALLED FOR TRANSPORT ETA 60 MINS PER JAYNA.
--- NOTE | 2022-05-21 10:00 | NUR ---
CALLED YOKASTA HAMILTON NO ANSERED LEFT CIRILO IN ANSWER HENRRY BACK TO HIS CARE
--- NOTE | 2022-05-21 10:15 | NUR ---
DININESES ANY PAIN NO DISTRESS D/C INSTRACTION GIVEN TO PT AND AMBALNCE PERSONALE LAW AWARE ABOUT BP 182/92 MMHG NO ORDER
[2022-05-21 10:18] VITALS: BP 182/92
== END 2022-05-21 10:25 | disposition home or self-care (01) ==
LOC: ER 08:46
DX: Z04.1 Encounter for examination and observation following transport accident (principal); N18.6 End stage renal disease; E11.22 Type 2 diabetes mellitus with diabetic chronic kidney disease; I12.0 Hypertensive chronic kidney disease with stage 5 chronic kidney disease or end stage renal disease; Z99.2 Dependence on renal dialysis; Z79.82 Long term (current) use of aspirin

== ENCOUNTER 2023-01-11 00:14 | Inpatient (IN) | payer OTHER ==
[~2023-01-11] VITALS: Ht 172.7 cm; Wt 72.6 kg
--- NOTE | 2023-01-11 00:20 | NUR ---
[id number] FROM [facility] CC OF RESP DISTRESS. PSYCHOLOGY DEPARTMENT CHAIR ON 3LPM NC SATS ON THE 80'S, ON HIFLOW SATS 100%. + WHEEZING, ESRD PT WITH MIKEY. ARM EDEMA
--- NOTE | 2023-01-11 00:37 | NUR ---
COVID SWAB DONE AND SENT TO LAB
--- NOTE | 2023-01-11 00:37 | NUR ---
BLOOD AND CULTURES COLLECTED AND SENT TO LAB
[2023-01-11] MEDS ORDERED: ALBUTEROL FS 2.5 MG/0.5 ML VIAL.NEB ONE (00:53)
[2023-01-11] MEDS ORDERED: IPRATROPIUM NEB FS 0.5 MG/2.5 ML AMPUL.NEB ONE (00:58)
[2023-01-11 00:59] LABS: BASOPHILS % (AUTO) 0.5 % (0.0-2.0); EOSINOPHILS % (AUTO) 0.1 % (0.0-6.0); HEMATOCRIT 33 % (39-51); HEMOGLOBIN 10.4 g/dL (13.5-17.5); LYMPHOCYTES # (AUTO) 0.5 K/uL (0.8-4.8); LYMPHOCYTES % (AUTO) 6.5 % (20.0-44.0); MEAN CORPUSCULAR HGB CONC 32 g/dl (31.0-36.0); MEAN CORPUSCULAR VOLUME 102 fL (80-96); MONOCYTES # (AUTO) 0.4 K/uL (0.1-1.30); MONOCYTES % (AUTO) 5.2 % (2.0-12.0); NEUTROPHILS # (AUTO) 6.1 K/uL (1.8-8.9); NEUTROPHILS % (AUTO) 87.7 % (43.0-81.0); PLATELET COUNT (AUTO) 176 K/uL (150-450); RED BLOOD CELL COUNT(AUTO) 3.24 MIL/uL (4.5-6.0)
[2023-01-11] MEDS ORDERED: IPRATROPIUM NEB FS 0.5 MG/2.5 ML AMPUL.NEB NEB ONE (01:00)
[2023-01-11] MEDS ORDERED: ALBUTEROL FS 2.5 MG/0.5 ML VIAL.NEB NEB ONE (01:00)
[2023-01-11 01:13] LABS: CALCIUM, SERUM 9.4 mg/dL (8.5-10.1); CARBON DIOXIDE 23 mmol/L (21-32); CHLORIDE 104 mmol/L (98-107); CREATININE 3.7 mg/dL (0.6-1.3); GLUCOSE 140 mg/dL (74-106); POTASSIUM 4.1 mmol/L (3.5-5.1); SODIUM SERUM 139 mmol/L (136-145); UREA NITROGEN, BLOOD 33 mg/dL (7-18)
[2023-01-11 01:19] LABS: ALANINE AMINOTRANSFERASE 13 U/L (12-78); ALBUMIN 2.8 g/dL (3.4-5.0); ALKALINE PHOSPHATASE 106 U/L (46-116); ASPARTATE AMINOTRANSFERASE 15 U/L (15-37); BILIRUBIN,DIRECT 0.2 mg/dL (0.0-0.2); BILIRUBIN,TOTAL 0.3 mg/dL (0.2-1.0); TOTAL PROTEIN, SERUM 7.9 g/dL (6.4-8.2)
--- NOTE | 2023-01-11 01:21 | NUR ---
RT ENDORSED, SWITCHED FROM NR-MASK TO 2L VIA NC; TOLERATING WELL >95% O2 SAT.
[2023-01-11] MEDS ORDERED: LIDOCAINE 2% JEL UROJET 10 ML MM ONE (01:41)
--- NOTE | 2023-01-11 01:51 | NUR ---
WATSON CATHETER PLACED 200ML URINE OUTPUT NOTED.
--- NOTE | 2023-01-11 01:51 | NUR ---
URINE COLLECTED AND SENT TO LAB
--- NOTE | 2023-01-11 02:11 | NUR ---
[facility] PAGED
[2023-01-11] MEDS ORDERED: FUROSEMIDE 40 MG/4 ML VIAL IV ONE (02:30)
[2023-01-11] MEDS ORDERED: FUROSEMIDE 40 MG/4 ML VIAL ONE (02:40)
[2023-01-11 02:52] LABS: BACTERIA,URINE Few /HPF (None Seen); BILIRUBIN,URINE NEGATIVE (NEGATIVE); COLOR,URINE YELLOW (YELLOW); LEUKOCYTE ESTERASE ,URINE TRACE (NEGATIVE); NITRITE, URINE NEGATIVE (NEGATIVE); PROTEIN,URINE 3+ mg/dl (NEGATIVE); SQUAMOUS EPITHELIAL CELL,UR Few /HPF (None Seen); UGLUCOSE TRACE mg/dL (NEGATIVE); UROBILINOGEN,URINE 0.2 EU/dL (0.2); WBC,URINE 0-2 /HPF (0-3)
--- NOTE | 2023-01-11 04:20 | NUR ---
CALLED 3W, S/W SERGEY MCKAY ER REPORT GIVEN. PT WILL BE GOING TO [id number].
[2023-01-11 04:30] VITALS: BP 193/91
[2023-01-11] MEDS ORDERED: ALBUTEROL HALF STRENGTH 1.25 MG/3 ML VIAL.NEB NEB PRN (04:30)
[2023-01-11] MEDS ORDERED: DEXTROSE 50%-WATER 50 ML DISP.SYRIN IV PRN (04:30)
[2023-01-11] MEDS ORDERED: IPRATROPIUM NEB FS 0.5 MG/2.5 ML AMPUL.NEB NEB PRN (04:30)
[2023-01-11] MEDS ORDERED: ONDANSETRON HCL/PF 4 MG/2 ML VIAL IVP PRN (04:30)
[2023-01-11] MEDS ORDERED: ACETAMINOPHEN 325 MG TABLET PO PRN (04:30)
--- NOTE | 2023-01-11 04:30 | NUR ---
AUTOMOTIVE PAINTER HELPERAIR TRAFFIC CONTROL SPECIALIST NOTES RECEIVED PATIENT FROM ER AT 0430. PATIENT IS A/O TIMES 2-3 . SERBIAN SPEAKER. HE UNDERSTANDS A LITTLE [place]ET[place]ESE. PATIENT IS BLIND. NO PAIN NOTED. NO SOB NOTED. NO DISTRESS NOTED. ON 02 INHALATION VIA NASAL CANNULA AT 2L/MIN. O2 SAT NOTED 97%. PATIENT IS BLIND AND CAN NOT SEE. ALL THE NEEDS ATTENDED. SKIN CHECKS DONE. BILATERAL AMPUTATION. NOTED OPEN SKIN ON THE LEFT FOOT, RIGHT FOOT. NOTED BILATERAL LEG REDNESS AND RIGHT UPPER BACK SCAB. ALL PICTURES TAKEN AND KEPT IN CHART. BELONGING PAPER SIGNED AND KEPT IN CHART. NOTED RIGHT ARM EDEMA. PATIENT HAS BILATERAL FEET AMPUTATION. NON AMBULATORY AND BED REST. WATSON CATHETER INTACT AND DRAINING YELLOW COLOR URINE BY GRAVITY. UPON ARRIVAL FROM ER THE BP WAS 194/99, P=74. INFORMED GRAVURE PRINTING MACHINIST DONATO. ONE TIME ORDER OF HYDRALAZINE 50 MG PO GIVEN. ORDER NOTED AND CARRIED OUT. IV ACCESS ON THE RIGHT HAND # 20 INTACT AND SL. ALL SAFETY MEASURES IN PLACE. BED LOCKED IN THE LOWEST POSITION. CALL LIGHT AND TABLE IN EASY REACH. SIDE RAILS UP TIMES 2. WILL CONTINUE TO MONITOR CLOSELY.
[2023-01-11] MEDS ORDERED: hydrALAZINE HCL 50 MG TABLET PO ONE (05:00)
[2023-01-11] MEDS: hydrALAZINE HCL 50 MG TABLET PO SCH ×4 (06:46→23:51)
[2023-01-11] MEDS: BLOOD SUGAR DIAGNOSTIC 1 EACH STRIP IN SCH ×4 (06:50→21:58)
[2023-01-11 07:00] VITALS: BP 184/76
--- NOTE | 2023-01-11 07:30 | NUR ---
PERSONNEL ANALYST CLOSING NOTES PATIENT IS A/O TIMES 2-3 . J[place]ICAN SPEAKER. HE UNDERSTANDS A LITTLE PANAMANIAN. PATIENT IS BLIND. NO PAIN NOTED. NO SOB NOTED. NO DISTRESS NOTED. ON 02 INHALATION VIA NASAL CANNULA AT 2L/MIN. O2 SAT NOTED 96%. PATIENT HAS RIGHT ARM EDEMA. PATIENT HAS BILATERAL FEET AMPUTATION. NON AMBULATORY AND BED REST. WATSON CATHETER INTACT AND DRAINING YELLOW COLOR URINE BY GRAVITY. AT 0700 AM BP WAS 184/99, P=74. 0600 AM HYDRALAZINE 50 MG PO GIVEN ORDERED.IV ACCESS ON THE RIGHT HAND # 20 INTACT AND SL. ALL SAFETY MEASURES IN PLACE. BED LOCKED IN THE LOWEST POSITION. CALL LIGHT AND TABLE IN EASY REACH. SIDE RAILS UP TIMES 2. WILL ENDORSE FOR SHANNON.
--- NOTE | 2023-01-11 07:31 | NUR ---
RN OPENING NOTE RECEIVED PATIENT IN BED, AWAKE, A/O X3, VERBALLY RESPONSIVE AND ABLE TO MAKE NEEDS KNOWN. AZERI SPEAKING, UNDERSTAND SOME [place]. ON O2 INHALATION @3LPM VIA N/C, BREATHING EVEN AND UNLABORED. DENIES ANY PAIN AT THIS TIME. ON COMMERCIAL LENDING ASSISTANT SHOWING SINUS RHYTHM, HR @ 73. WITH IV ACCESS ON RIGHT HAND #20G, INTACT AND PATENT , SL. F/C DRAINING CLEAR MCKAYLA URINE. NOTED WITH HD CATHETER ON LEFT CHEST WALL WITH DRESSING C/D/I. SAFETY MEASURE IN PLACE. BED IN LOW AND LOCKED POSITION, SIDE RAILS UP X2, CALL LIGHT PLACED WITHIN EASY REACH. WILL CONTINUE TO MONITOR PATIENT.
[2023-01-11] MEDS: ZINC SULFATE 220 MG CAPSULE PO SCH (08:21)
[2023-01-11] MEDS: ASPIRIN 81 MG TAB.CHEW PO SCH (08:22)
[2023-01-11] MEDS: VIT B CMPLX 3/FA/VIT C/BIOTIN 1 TAB TABLET PO SCH (08:22)
[2023-01-11] MEDS: METOPROLOL SUCCINATE 50 MG TAB.SR.24H PO SCH (08:23)
[2023-01-11] MEDS: LOSARTAN POTASSIUM 50 MG TABLET PO SCH (08:23)
[2023-01-11] MEDS: NIFEdipine XL (30MG) 30 MG TAB PO SCH (08:23)
[2023-01-11] MEDS: POLYETHYLENE GLYCOL 3350 17 GM POWD.PACK PO SCH (08:23)
[2023-01-11] MEDS: HEPARIN SODIUM, PORCINE 5000 UNITS/1 ML VIAL SQ SCH ×2 (08:24→21:13)
[2023-01-11] MEDS: PROSOURCE / PROSTAT (PYXIS) 30 ML UDC PO SCH (08:35)
[2023-01-11] MEDS ORDERED: NA P133E RC (10:01)
[2023-01-11] MEDS ORDERED: CLON0.1T PO (10:01)
[2023-01-11] MEDS ORDERED: ONDA4TAB11 SL (10:01)
[2023-01-11] MEDS ORDERED: MAGN400O6 PO (10:01)
[2023-01-11] MEDS ORDERED: ASPI-1420 PO (10:01)
[2023-01-11] MEDS ORDERED: METO25TA3 PO (10:01)
[2023-01-11] MEDS ORDERED: CHOL100043 PO (10:01)
[2023-01-11] MEDS ORDERED: NUT.237L67 PO (10:01)
[2023-01-11] MEDS ORDERED: NIFE-35 PO (10:01)
[2023-01-11] MEDS ORDERED: HYDR-4303 PO (10:01)
[2023-01-11] MEDS ORDERED: BISA10SU11 RC (10:01)
[2023-01-11] MEDS ORDERED: FERR325T23 PO (10:01)
[2023-01-11] MEDS ORDERED: ACET-868 PO (10:01)
[2023-01-11] MEDS: INSULIN REGULAR, HUMAN 100 UNIT/ML 3 ML VIAL SQ PRN ×2 (11:46→16:38)
[2023-01-11 12:00] VITALS: BP 193/94
--- NOTE | 2023-01-11 13:30 | NUR ---
RN NOTE PATIENT NOTED B/P 192/91 DESPITE GIVING ROUTINE HYDRALAZINE 50 MG @1200. DILLON MARKHAM MADE AWARE WITH ORDER TO GIVE CLONIDINE 0.1 MG PO X1. ORDER CARRIED OUT. WILL CONTINUE TO MONITOR PATIENT.
[2023-01-11] MEDS ORDERED: CLONIDINE HCL 0.1 MG TABLET PO ONE (14:00)
[2023-01-11 16:00] VITALS: BP 193/98
--- NOTE | 2023-01-11 16:10 | NUR ---
RN NOTE HEMODIALYSIS STARTED BY HD NURSE GIBRAN.
--- NOTE | 2023-01-11 18:20 | NUR ---
RN NOTE HD FINISHED. PATIENT TOLERATED PROCEDURE WELL. 2500 ML FLUID REMOVED.
--- NOTE | 2023-01-11 18:25 | NUR ---
RN NOTE DILLON MARKHAM MADE AWARE REGARDING PATIENTS BP STILL HIGH AT 188/98 POST HD. ORDERED NEW MEDICATION, CARRIED OUT.
--- NOTE | 2023-01-11 18:52 | NUR ---
RN CLOSING NOTE PATIENT IN BED, AWAKE, A/O X3, VERBALLY RESPONSIVE AND ABLE TO MAKE NEEDS KNOWN. NO SIGNS OF ACUTE DISTRESS NOTED. REMAINS ON O2 INHALATION @3LPM VIA N/C, BREATHING EVEN AND UNLABORED. DENIES ANY PAIN AT THIS TIME. CONTINUE ON INVASIVE CARDIOVASCULAR TECHNOLOGIST SHOWING SINUS RHYTHM, HR @ 65. IV ACCESS ON RIGHT HAND #20G, INTACT AND PATENT , SL. F/C DRAINING CLEAR MCKAYLA URINE. WITH HD CATHETER ON LEFT CHEST WALL WITH DRESSING C/D/I. SAFETY MEASURE MAINTAINED. BED IN LOW AND LOCKED POSITION, SIDE RAILS UP X2, CALL LIGHT PLACED WITHIN EASY REACH. WILL ENDORSE TO NEXT SHIFT FOR SHANNON.
--- NOTE | 2023-01-11 19:27 | NUR ---
RN OPENING NOTE; RECEIVED PATIENT IN BED, AWAKE, A/O X3,SIERRA LEONEAN SPEAKING,BLIND,ON 3L O2 VIA NC DORIS WELL SATING 98%,NO SIGN SOB/DISTRESS NOTED,IV ACCESS ON RIGHT HAND #20G, INTACT AND PATENT , SL. F/C DRAINING CLEAR MCKAYLA URINE. WITH HD CATHETER ON LEFT CHEST WALL WITH DRESSING C/D/I. SAFETY MEASURE MAINTAINED. BED IN LOW AND LOCKED POSITION, SIDE RAILS UP X2, CALL LIGHT PLACED WITHIN EASY REACH. WILL CONTINUE TO MONITOR.
[2023-01-11 20:00] VITALS: BP 170/77
[2023-01-11] MEDS: ATORVASTATIN 40 MG TABLET PO SCH (21:11)
[2023-01-11] MEDS: SENNOSIDES 8.6 MG TABLET PO SCH (21:11)
[2023-01-11] MEDS: TAMSULOSIN 0.4 MG CAP.SR.24H PO SCH (21:11)
[2023-01-12] VITALS: BP 152/76
[2023-01-12 04:00] VITALS: BP 150/72
[2023-01-12] MEDS: hydrALAZINE HCL 50 MG TABLET PO SCH ×4 (05:59→18:04)
[2023-01-12] MEDS: NITROGLYCERIN PACKET 1 GM PACKET TOP SCH ×2 (06:12→18:09)
[2023-01-12] MEDS: BLOOD SUGAR DIAGNOSTIC 1 EACH STRIP IN SCH ×4 (06:19→22:13)
[2023-01-12 06:27] LABS: BASOPHILS # (AUTO) 0.1 K/uL (0.0-0.2); BASOPHILS % (AUTO) 0.8 % (0.0-2.0); EOSINOPHILS % (AUTO) 0.3 % (0.0-6.0); HEMATOCRIT 33 % (39-51); HEMOGLOBIN 10.6 g/dL (13.5-17.5); LYMPHOCYTES # (AUTO) 0.5 K/uL (0.8-4.8); LYMPHOCYTES % (AUTO) 7.7 % (20.0-44.0); MEAN CORPUSCULAR HGB CONC 32 g/dl (31.0-36.0); MEAN CORPUSCULAR VOLUME 101 fL (80-96); MONOCYTES # (AUTO) 0.4 K/uL (0.1-1.30); MONOCYTES % (AUTO) 6.1 % (2.0-12.0); NEUTROPHILS # (AUTO) 5.6 K/uL (1.8-8.9); NEUTROPHILS % (AUTO) 85.1 % (43.0-81.0); PLATELET COUNT (AUTO) 169 K/uL (150-450); RED BLOOD CELL COUNT(AUTO) 3.25 MIL/uL (4.5-6.0); WHITE BLOOD COUNT (AUTO) 6.6 K/uL (4.3-11.0)
--- NOTE | 2023-01-12 06:28 | NUR ---
RN CLOSING NOTE; PATIENT IN BED, AWAKE, A/O X3,WOLOF SPEAKING,BLIND,ON 3L O2 VIA NC DORIS WELL SATING 97%,NO SIGN SOB/DISTRESS NOTED,IV ACCESS ON RIGHT HAND #20G,SL INTACT AND PATENT,DUE MEDS GIVEN ORDER,ALL NEEDS ATTENDED,F/C DRAINING BLOOD THIN URINE,WITH HD CATHETER ON LEFT CHEST WALL WITH DRESSING C/D/I. SAFETY MEASURE MAINTAINED. BED IN LOW AND LOCKED POSITION, SIDE RAILS UP X2, CALL LIGHT PLACED WITHIN EASY REACH. WILL ENDORSED TO NEXT SHIFT.
[2023-01-12 06:50] LABS: CALCIUM, SERUM 8.9 mg/dL (8.5-10.1); CREATININE 3.3 mg/dL (0.6-1.3); MAGNESIUM 2.5 mg/dL (1.8-2.4); PHOSPHORUS 4.2 mg/dL (2.5-4.9); POTASSIUM 3.7 mmol/L (3.5-5.1)
--- NOTE | 2023-01-12 07:30 | NUR ---
PODIATRIC MEDICINE PROFESSOR OPENING NOTE; RECEIVED PATIENT IN BED, AWAKE, A/O X3,ERITREAN SPEAKING, BLIND. NO SIGNS OF ACUTE DISTRESS NOTED. ON O2 INHALATION @ 3LPM VIA NC TOLERATING WELL, SATURATING AT 91%. NO SOB NOTED, BREATHING EVEN AND UNLABORED. ON TELE MONITOR, [id number]. NOTED WITH IV ACCESS ON RIGHT HAND #20G, INTACT AND PATENT, SL. WATSON CATHETER IN PLACE, DRAINING CLEAR MCKAYLA URINE VIA GRAVITY. WITH HD CATHETER ON LEFT CHEST WALL WITH DRESSING CLEAN, DRY AND INTACT. SAFETY MEASURE IN PLACE. BED IN LOW AND LOCKED POSITION, SIDE RAILS UP X2, CALL LIGHT PLACED WITHIN EASY REACH. WILL CONTINUE TO MONITOR.
[2023-01-12 08:00] VITALS: BP 150/72
[2023-01-12] MEDS: VIT B CMPLX 3/FA/VIT C/BIOTIN 1 TAB TABLET PO SCH (08:47)
[2023-01-12] MEDS: ASPIRIN 81 MG TAB.CHEW PO SCH (08:47)
[2023-01-12] MEDS: LOSARTAN POTASSIUM 50 MG TABLET PO SCH (08:49)
[2023-01-12] MEDS: METOPROLOL SUCCINATE 50 MG TAB.SR.24H PO SCH (08:49)
[2023-01-12] MEDS: ZINC SULFATE 220 MG CAPSULE PO SCH (08:50)
[2023-01-12] MEDS: NIFEdipine XL (30MG) 30 MG TAB PO SCH (08:50)
[2023-01-12] MEDS: POLYETHYLENE GLYCOL 3350 17 GM POWD.PACK PO SCH (08:50)
[2023-01-12] MEDS: HEPARIN SODIUM, PORCINE 5000 UNITS/1 ML VIAL SQ SCH ×2 (08:51→21:18)
[2023-01-12] MEDS: PROSOURCE / PROSTAT (PYXIS) 30 ML UDC PO SCH (08:53)
[2023-01-12] MEDS ORDERED: NEPRO VAN 237 ML CAN PO PRN (09:30)
[2023-01-12] MEDS: ERYTHROMYCIN BASE OPHTH 3.5 GM TUBE EACHEYE SCH ×2 (09:55→21:22)
[2023-01-12 12:00] VITALS: BP 140/60
--- NOTE | 2023-01-12 13:00 | NUR ---
AVIATION MANAGER HELD HYDRALAZINE 50MG DUE TO PATIENT WAS SCHEDULED FOR DIALYSIS.
--- NOTE | 2023-01-12 13:15 | NUR ---
C.O.D. BILLERMANAGER STRATEGIC DEVELOPMENT STARTED BY HD NURSE AT 1315H.
--- NOTE | 2023-01-12 15:15 | NUR ---
MEAT PACKERMANAGER DRILLING DONE. PATIENT TOLERATED PROCEDURE WELL. OUTPUT: 2000ML .
[2023-01-12 16:00] VITALS: BP 130/62
[2023-01-12] MEDS: PROSOURCE / PROSTAT (PYXIS) 30 ML UDC GT SCH (17:00)
--- NOTE | 2023-01-12 18:56 | NUR ---
STAFF DEVELOPMENT EDUCATOR CLOSING NOTE PATIENT IS ASLEEP. EASY TO AROUSE, A/O X3,MACEDONIAN SPEAKING, BLIND. NO SIGNS OF ACUTE DISTRESS NOTED. ON O2 INHALATION @ 3LPM VIA NC TOLERATING WELL, SATURATING AT 94%. NO SOB NOTED, BREATHING EVEN AND UNLABORED. PATIENT ON TELE MONITOR READING, SR HR:67. NOTED WITH IV ACCESS ON RIGHT HAND #20G, INTACT AND PATENT, SL. WATSON CATHETER IN PLACE, DRAINING CLEAR MCKAYLA URINE VIA GRAVITY. WITH HD CATHETER ON LEFT CHEST WALL WITH DRESSING CLEAN, DRY AND INTACT. ALL NEEDS ATTENDED. DUE MEDS GIVEN ORDER NOTED. SAFETY MEASURE IN PLACE. BED IN LOW AND LOCKED POSITION, SIDE RAILS UP X2, CALL LIGHT PLACED WITHIN EASY REACH. WILL ENDORSE TO CELLULAR PHONE REPAIRER NURSE FOR CONTINUITY OF CARE.
--- NOTE | 2023-01-12 19:42 | NUR ---
RN OPENING NOTE; RECEIVED PATIENT IN BED, AWAKE, A/O X3,CUBAN SPEAKING,BLIND,ON 3L O2 VIA NC DORIS WELL SATING 98%,NO SIGN SOB/DISTRESS NOTED,IV ACCESS ON RIGHT HAND #20G, INTACT AND PATENT , SL. F/C DRAINING CLEAR MCKAYLA URINE. WITH HD CATHETER ON LEFT CHEST WALL WITH DRESSING C/D/I. SAFETY MEASURE MAINTAINED. BED IN LOW AND LOCKED POSITION, SIDE RAILS UP X2, CALL LIGHT PLACED WITHIN EASY REACH. WILL CONTINUE TO MONITOR.
[2023-01-12 20:00] VITALS: BP 148/74
[2023-01-12] MEDS: SENNOSIDES 8.6 MG TABLET PO SCH (21:17)
[2023-01-12] MEDS: ATORVASTATIN 40 MG TABLET PO SCH (21:17)
[2023-01-12] MEDS: TAMSULOSIN 0.4 MG CAP.SR.24H PO SCH (21:17)
[2023-01-13] VITALS: BP 150/73
[2023-01-13] MEDS: hydrALAZINE HCL 50 MG TABLET PO SCH ×5 (00:01→23:29)
--- NOTE | 2023-01-13 02:10 | NUR ---
RN NOTE BLOOD PRESSURE CHECKED; BP IS 192/99 CHARGE NURSE MADE AWARE. MANAGER INTEGRATION DONATO MADE AWARE. NEW ONE TIME ORDER HYDRALAZINE 20MG IVP RECEIVED AND CARRIED OUT. GIVEN TO THE PATIENT. WILL CONTINUE TO MONITOR.
[2023-01-13 04:59] VITALS: BP 150/62
[2023-01-13] MEDS: NITROGLYCERIN PACKET 1 GM PACKET TOP SCH ×2 (05:38→19:17)
--- NOTE | 2023-01-13 06:14 | NUR ---
RN CLOSING NOTE; PATIENT IN BED, AWAKE, A/O X3,MACEDONIAN SPEAKING,BLIND,ON 3L O2 VIA NC DORIS WELL SATING 98%,NO SIGN SOB/DISTRESS NOTED,IV ACCESS ON RIGHT HAND #20G,SL INTACT AND PATENT,DUE MEDS GIVEN ORDER,ALL NEEDS ATTENDED,F/C DRAINING BLOOD THIN URINE,WITH HD CATHETER ON LEFT CHEST WALL WITH DRESSING C/D/I. SAFETY MEASURE MAINTAINED. BED IN LOW AND LOCKED POSITION, SIDE RAILS UP X2, CALL LIGHT PLACED WITHIN EASY REACH. WILL ENDORSED TO NEXT SHIFT.
[2023-01-13 06:25] LABS: BASOPHILS % (AUTO) 0.5 % (0.0-2.0); EOSINOPHILS % (AUTO) 1.1 % (0.0-6.0); HEMATOCRIT 33 % (39-51); HEMOGLOBIN 10.6 g/dL (13.5-17.5); LYMPHOCYTES # (AUTO) 0.7 K/uL (0.8-4.8); LYMPHOCYTES % (AUTO) 8.3 % (20.0-44.0); MEAN CORPUSCULAR HGB CONC 32 g/dl (31.0-36.0); MEAN CORPUSCULAR VOLUME 102 fL (80-96); MONOCYTES # (AUTO) 0.7 K/uL (0.1-1.30); MONOCYTES % (AUTO) 7.8 % (2.0-12.0); NEUTROPHILS # (AUTO) 7.1 K/uL (1.8-8.9); NEUTROPHILS % (AUTO) 82.3 % (43.0-81.0); PLATELET COUNT (AUTO) 200 K/uL (150-450); RED BLOOD CELL COUNT(AUTO) 3.22 MIL/uL (4.5-6.0); WHITE BLOOD COUNT (AUTO) 8.6 K/uL (4.3-11.0)
[2023-01-13] MEDS: BLOOD SUGAR DIAGNOSTIC 1 EACH STRIP IN SCH ×4 (06:47→23:28)
[2023-01-13 07:03] LABS: CALCIUM, SERUM 9.2 mg/dL (8.5-10.1); CREATININE 3.1 mg/dL (0.6-1.3); MAGNESIUM 2.4 mg/dL (1.8-2.4); PHOSPHORUS 2.9 mg/dL (2.5-4.9); POTASSIUM 3.6 mmol/L (3.5-5.1)
--- NOTE | 2023-01-13 07:30 | NUR ---
PT RECEIVED RESTING COMFORTABLY IN BED. NO S/S OR C/O PAIN OR DISTRESS NOTED. SIDE RAILS UP X2, CALL LIGHT LEFT WITHIN REACH. WILL CONTINUE PLAN OF CARE.
--- NOTE | 2023-01-13 08:40 | NUR ---
WOUND CARE CONSULT: PT REFUSED TO BE TURNED FOR SKIN ASSESSMENT, THEN ALLOWED BRIEF ASSESSMENT OF BACK AND SACRAL AREA. SCAR RING WITH DISCOLORATION NOTED TO BONY SACRAL AREA, PRESENT ON ADMISSION. PT NOTED TO HAVE FRAGILE SKIN WITH DISCOLORATION TO LOWER EXTREMITIES, DRY WOUNDS INCLUDING BORIS WITH BLACK NECROTIC TISSUE TO RT FOOT AMPUTATION SITE, PRESENT ON ADMISSION. DR ISSA CALLED FOR DPM CONSULT. DISCUSSED SKIN PROTECTION WITH NURSING STAFF. IN AGREEMENT WITH PLAN OF CARE.
[2023-01-13] MEDS: NIFEdipine XL (30MG) 30 MG TAB PO SCH (09:00)
[2023-01-13] MEDS ORDERED: Z GUARD REMEDY 4 OZ OINT TP PRN (09:00)
[2023-01-13] MEDS: METOPROLOL SUCCINATE 50 MG TAB.SR.24H PO SCH (09:00)
[2023-01-13] MEDS: PROSOURCE / PROSTAT (PYXIS) 30 ML UDC PO SCH (09:00)
[2023-01-13] MEDS: LOSARTAN POTASSIUM 50 MG TABLET PO SCH (09:00)
[2023-01-13] MEDS: HEPARIN SODIUM, PORCINE 5000 UNITS/1 ML VIAL SQ SCH ×2 (09:24→20:57)
[2023-01-13] MEDS: POLYETHYLENE GLYCOL 3350 17 GM POWD.PACK PO SCH (09:24)
[2023-01-13] MEDS: ASPIRIN 81 MG TAB.CHEW PO SCH (09:25)
[2023-01-13] MEDS: VIT B CMPLX 3/FA/VIT C/BIOTIN 1 TAB TABLET PO SCH (09:25)
[2023-01-13] MEDS: ZINC SULFATE 220 MG CAPSULE PO SCH (09:25)
[2023-01-13] MEDS: ERYTHROMYCIN BASE OPHTH 3.5 GM TUBE EACHEYE SCH ×2 (09:42→21:00)
[2023-01-13] MEDS: PROSOURCE / PROSTAT (PYXIS) 30 ML UDC GT SCH ×2 (09:43→17:10)
[2023-01-13] MEDS ORDERED: CEFEPIME 2 GM in IV D5W 100 ML IV SCH (11:00)
[2023-01-13 11:14] VITALS: BP 155/74
[2023-01-13 16:09] VITALS: BP 169/88
--- NOTE | 2023-01-13 19:05 | NUR ---
RN OPENING NOTE; RECEIVED PATIENT IN BED, AWAKE, A/O X3,CHADIAN SPEAKING,BLIND,ON 3L O2 VIA NC TOLERATING WELL SATING 98%,NO SIGN SOB/DISTRESS NOTED, NO COMPLAINS OF PAIN AT THE MOMENT. IV ACCESS ON RIGHT HAND #20G, SALINE LOCK NOTED TO BE INTACT AND PATENT, HD CATHETER ON LEFT CHEST WALL WITH DRESSING C/D/I. SAFETY MEASURE MAINTAINED. BED IN LOW AND LOCKED POSITION, SIDE RAILS UP X2, CALL LIGHT PLACED WITHIN EASY REACH.
[2023-01-13 20:00] VITALS: BP 199/90
--- NOTE | 2023-01-13 20:38 | NUR ---
RN NOTE PATIENT BP IS 199/90 HR 77. BP IS CHECKED WITH AUTOMATIC AND MANUAL BLOOD PRESSURE MACHINE TWICE SAME RESULT. CHARGE NURSE MADE AWARE. PROTECTIVE SIGNAL REPAIRER BENZENE OPERATOR DONATO MADE AWARE. NEW ORDER RECEIVED OF HYDRALAZINE 10MG IVP CARRIED OUT AND GIVEN. WILL CONTINUE TO MONITOR.
[2023-01-13] MEDS: hydrALAZINE HCL IV 20 MG VIAL IV PRN (20:57)
--- NOTE | 2023-01-13 22:00 | NUR ---
RN NOTE BLOOD SUGAR CHECK RESULT IS 73. NO INSULIN GIVEN. SNACKS IS GIVEN TO HELP BLOOD SUGAR UP.
[2023-01-13] MEDS: ATORVASTATIN 40 MG TABLET PO SCH (22:14)
[2023-01-13] MEDS: TAMSULOSIN 0.4 MG CAP.SR.24H PO SCH (22:14)
[2023-01-13] MEDS: SENNOSIDES 8.6 MG TABLET PO SCH (22:15)
[2023-01-14] VITALS (9 sets, daily range): BP systolic 123–203; BP diastolic 56–97
--- NOTE | 2023-01-14 02:10 | NUR ---
RN NOTE BLOOD PRESSURE CHECKED; BP IS 192/99 CHARGE NURSE MADE AWARE. TRANSFORMATION LEAD DONATO MADE AWARE. NEW ONE TIME ORDER HYDRALAZINE 20MG IVP RECEIVED AND CARRIED OUT. GIVEN TO THE PATIENT. WILL CONTINUE TO MONITOR.
[2023-01-14] MEDS ORDERED: hydrALAZINE HCL IV 20 MG VIAL IV ONE ×2 (03:10→07:00)
[2023-01-14] MEDS: hydrALAZINE HCL 50 MG TABLET PO SCH ×4 (06:12→16:40)
[2023-01-14] MEDS: NITROGLYCERIN PACKET 1 GM PACKET TOP SCH (06:12)
--- NOTE | 2023-01-14 06:39 | NUR ---
RN NOTE PATIENT BLOOD PRESSURE IS 198/98. SHASHANK SEWELL MADE AWARE. NEW ORDER RECEIVED.
[2023-01-14] MEDS: BLOOD SUGAR DIAGNOSTIC 1 EACH STRIP IN SCH ×4 (06:51→21:38)
--- NOTE | 2023-01-14 06:54 | NUR ---
RN CLOSING NOTE; PATIENT IN BED, SLEEPING, BREATHING EVENLY UNLABORED. A/O X3,OMANI SPEAKING, BLIND, ON 3L O2 VIA NC TOLERATING WELL SATING 98%,NO SIGN SOB/DISTRESS NOTED, NO COMPLAINS OF PAIN AT THE MOMENT. IV ACCESS ON LEFT HAND #22G, SALINE LOCK NOTED TO BE INTACT AND PATENT, HD CATHETER ON LEFT CHEST WALL WITH DRESSING C/D/I. PATIENT WITH WATSON CATHETER WITH OUTPUT OF 200CC WITH YELLOW URINE WITH TINGED OF BLOOD NOTED. ALL DUE MEDICATION IS GIVEN. ALL NEEDS ARE MET. MADE SURE PATIENT IS COMFORTABLE. SAFETY MEASURE MAINTAINED. BED IN LOW AND LOCKED POSITION, SIDE RAILS UP X2, CALL LIGHT PLACED WITHIN EASY REACH. ENDORSED TO NEXT SHIFT NURSE FOR CONTINUITY OF CARE.
[2023-01-14 07:29] LABS: BASOPHILS % (AUTO) 0.7 % (0.0-2.0); EOSINOPHILS % (AUTO) 1.1 % (0.0-6.0); HEMATOCRIT 35 % (39-51); HEMOGLOBIN 11.2 g/dL (13.5-17.5); LYMPHOCYTES # (AUTO) 0.8 K/uL (0.8-4.8); LYMPHOCYTES % (AUTO) 10.9 % (20.0-44.0); MEAN CORPUSCULAR HGB CONC 32 g/dl (31.0-36.0); MEAN CORPUSCULAR VOLUME 104 fL (80-96); MONOCYTES # (AUTO) 0.5 K/uL (0.1-1.30); MONOCYTES % (AUTO) 7.7 % (2.0-12.0); NEUTROPHILS # (AUTO) 5.7 K/uL (1.8-8.9); NEUTROPHILS % (AUTO) 79.6 % (43.0-81.0); PLATELET COUNT (AUTO) 181 K/uL (150-450); RED BLOOD CELL COUNT(AUTO) 3.39 MIL/uL (4.5-6.0); WHITE BLOOD COUNT (AUTO) 7.1 K/uL (4.3-11.0)
--- NOTE | 2023-01-14 07:30 | NUR ---
NETWORK/TELECOM ENGINEER OPENING NOTE; PATIENT IN BED, SLEEPING, BREATHING EVENLY UNLABORED. A/O X3,KAZAKH SPEAKING, BLIND, ON RA TOLERATING WELL,NO SIGN SOB/DISTRESS NOTED, NO COMPLAINS OF PAIN AT THE MOMENT. IV ACCESS ON LEFT HAND #22G, SALINE LOCK NOTED TO BE INTACT AND PATENT, HD CATHETER ON LEFT CHEST WALL WITH DRESSING C/D/I. PATIENT WITH WATSON CATHETER WITH YELLOW URINE WITH TINGED OF BLOOD NOTED. WILL ADMINISTER ALL DUE MEDICATION. ALL NEEDS ARE MET. MADE SURE PATIENT IS COMFORTABLE. SAFETY MEASURE MAINTAINED. BED IN LOW AND LOCKED POSITION, SIDE RAILS UP X2, CALL LIGHT PLACED WITHIN EASY REACH.
[2023-01-14 08:32] LABS: CALCIUM, SERUM 8.8 mg/dL (8.5-10.1); CREATININE 2.9 mg/dL (0.6-1.3); MAGNESIUM 2.4 mg/dL (1.8-2.4); PHOSPHORUS 2.8 mg/dL (2.5-4.9); POTASSIUM 3.7 mmol/L (3.5-5.1)
[2023-01-14] MEDS: PROSOURCE / PROSTAT (PYXIS) 30 ML UDC GT SCH ×3 (09:00→17:00)
[2023-01-14] MEDS: POLYETHYLENE GLYCOL 3350 17 GM POWD.PACK PO SCH ×2 (09:00→09:06)
--- NOTE | 2023-01-14 09:00 | NUR ---
CENTRIFUGAL SPINNER NOTES APRESOLINE NOT GIVEN, PT HAD LAST DOSE AT 0612, PT STARTING DIALYSIS.
[2023-01-14] MEDS: ASPIRIN 81 MG TAB.CHEW PO SCH (09:06)
[2023-01-14] MEDS: ERYTHROMYCIN BASE OPHTH 3.5 GM TUBE EACHEYE SCH ×2 (09:06→20:41)
[2023-01-14] MEDS: ZINC SULFATE 220 MG CAPSULE PO SCH (09:06)
[2023-01-14] MEDS: VIT B CMPLX 3/FA/VIT C/BIOTIN 1 TAB TABLET PO SCH (09:06)
[2023-01-14] MEDS: NIFEdipine XL (30MG) 30 MG TAB PO SCH ×2 (09:09→16:39)
[2023-01-14] MEDS: ISOSORBIDE DINITRATE (20MG) 20 MG TABLET PO SCH ×2 (09:09→16:40)
[2023-01-14] MEDS: VALSARTAN 80 MG TABLET PO SCH (09:09)
[2023-01-14] MEDS: HEPARIN SODIUM, PORCINE 5000 UNITS/1 ML VIAL SQ SCH ×2 (09:12→20:39)
[2023-01-14] MEDS: METOPROLOL SUCCINATE 50 MG TAB.SR.24H PO SCH (09:17)
[2023-01-14] MEDS: THERAHONEY GEL 1.5 OZ TUBE TP SCH ×2 (11:30→16:40)
[2023-01-14] MEDS: AMMONIUM LACTATE 227 GM BOTTLE TP SCH ×2 (11:30→16:40)
--- NOTE | 2023-01-14 11:34 | NUR ---
CIRCULAR SAWYER HELPER NOTES PT ON DIALYSIS, TOLERATING WELL.
[2023-01-14] MEDS: hydrALAZINE HCL IV 20 MG VIAL IV PRN (11:53)
--- NOTE | 2023-01-14 15:16 | NUR ---
SCROLL SAW OPERATOR NOTES PT BP STILL HIGH, SEEN BY DR. OROURKE. ORDERED CLONIDINE 0.1 MG 1 TAB PO Q8HR PRN FOR SBP >160.
[2023-01-14] MEDS ORDERED: CLONIDINE HCL 0.1 MG TABLET PO PRN (15:30)
--- NOTE | 2023-01-14 18:22 | NUR ---
ACTOR UNDERSTUDY CLOSING NOTES PATIENT IN BED, SLEEPING, BREATHING EVENLY UNLABORED. A/O X3,KINYARWANDA SPEAKING, BLIND, ON 2L O2 VIA NC TOLERATING WELL. NO SIGN SOB/DISTRESS NOTED, NO COMPLAINS OF PAIN AT THE MOMENT. IV ACCESS ON LEFT HAND #22G, SALINE LOCK NOTED TO BE INTACT AND PATENT, HD CATHETER ON LEFT CHEST WALL WITH DRESSING C/D/I. PATIENT WITH WATSON CATHETER WITH OUTPUT OF 150 CC WITH BLOOD-TINGED YELLOW URINE. ALL DUE MEDICATION IS GIVEN. ALL NEEDS ARE MET. MADE SURE PATIENT IS COMFORTABLE. SAFETY MEASURE MAINTAINED. BED IN LOW AND LOCKED POSITION, SIDE RAILS UP X2, CALL LIGHT PLACED WITHIN EASY REACH. ALL SCHEDULED MEDS ADMINISTERED PRESCRIBED. ENDORSED TO NEXT SHIFT.
--- NOTE | 2023-01-14 19:35 | NUR ---
TRUST OFFICER NOTES SR-61 ON TELE MONITOR.ON BED SLEEPING,BREATHING REGULAR,NOT IN ANY FORM OF DISTRESS.A/O X3,SPEAK SPANISHFOLEY CATH IN PLACE DRAIN TEA COLORED URINE.WITH LEFT HAND SALINE LOCK INTACT AND PATENT FOR MEDS.LEFT CHEST WALL HD CATH FOR TREATMENT.LEGALLY BLIND ON BOTH EYES.HAD HD TODAY,2LITERS OUT.FALL PRECAUTION OBSERVED,BED ON LOWEST POSITION AND LOCKED,BED ALARM,CALL LIGHT IN REACH,NEEDS ANTICIPATED.
[2023-01-14] MEDS: TAMSULOSIN 0.4 MG CAP.SR.24H PO SCH (21:38)
[2023-01-14] MEDS: SENNOSIDES 8.6 MG TABLET PO SCH (21:38)
[2023-01-14] MEDS: ATORVASTATIN 40 MG TABLET PO SCH (21:38)
[2023-01-15] VITALS: BP 133/58
[2023-01-15 03:59] VITALS: BP 136/64
[2023-01-15 04:00] VITALS: BP 136/64
--- NOTE | 2023-01-15 05:00 | NUR ---
AD COMPOSITOR NOTES SALINE LOCK ACCIDENTALLY PULLED OUT.NEW SALINE LOCK PLACE ON LEFT WRIST #22,FLUSHED WUTH SALINE KEPT PATENT AND SECURED WITH BURN NET.
[2023-01-15] MEDS: BLOOD SUGAR DIAGNOSTIC 1 EACH STRIP IN SCH ×4 (06:00→22:34)
--- NOTE | 2023-01-15 06:00 | NUR ---
FILM WRITER NOTES ACCU-CHECK BLOOD SUGAR CHECK 67MG/DL,ALERT,ORIENTED X3-4,ABLE TO VERBALIZED NEEDS,APPLE JUICE 1 CUP GIVEN PER PROTOCOL.WILL RECHECK SUGAR IN AN HOUR.
--- NOTE | 2023-01-15 06:19 | NUR ---
ASSISTANT TECHNICIAN NOTES ASLEEP MOST ON THE NIGHT.DENIES PAIN DISCOMFORTS.MORNING CARE RENDERED BY CHAU KIRBY,TOLERATED WELL.NOT IN ANY FORM OF DISTRESS.
[2023-01-15 06:33] LABS: BASOPHILS % (AUTO) 0.7 % (0.0-2.0); EOSINOPHILS % (AUTO) 2.1 % (0.0-6.0); HEMATOCRIT 33 % (39-51); HEMOGLOBIN 10.6 g/dL (13.5-17.5); LYMPHOCYTES # (AUTO) 0.8 K/uL (0.8-4.8); LYMPHOCYTES % (AUTO) 10.2 % (20.0-44.0); MEAN CORPUSCULAR HGB CONC 32 g/dl (31.0-36.0); MEAN CORPUSCULAR VOLUME 102 fL (80-96); MONOCYTES # (AUTO) 0.5 K/uL (0.1-1.30); MONOCYTES % (AUTO) 6.9 % (2.0-12.0); NEUTROPHILS # (AUTO) 5.9 K/uL (1.8-8.9); NEUTROPHILS % (AUTO) 80.1 % (43.0-81.0); PLATELET COUNT (AUTO) 171 K/uL (150-450); RED BLOOD CELL COUNT(AUTO) 3.22 MIL/uL (4.5-6.0); WHITE BLOOD COUNT (AUTO) 7.4 K/uL (4.3-11.0)
[2023-01-15 06:50] LABS: CALCIUM, SERUM 8.8 mg/dL (8.5-10.1); CREATININE 2.7 mg/dL (0.6-1.3); MAGNESIUM 2.3 mg/dL (1.8-2.4); PHOSPHORUS 2.6 mg/dL (2.5-4.9); POTASSIUM 3.8 mmol/L (3.5-5.1)
--- NOTE | 2023-01-15 07:30 | NUR ---
TAKE DOWN INSPECTOR OPENING NOTE; RECEIVED PATIENT IN BED, SLEEPING, BREATHING EVENLY UNLABORED. A/O X3,CROATIAN SPEAKING, BLIND, ON RA TOLERATING WELL,NO SIGN SOB/DISTRESS NOTED, NO COMPLAINS OF PAIN AT THE MOMENT. IV ACCESS ON LEFT WRIST #22G, SALINE LOCK NOTED TO BE INTACT AND PATENT, HD CATHETER ON LEFT CHEST WALL WITH DRESSING C/D/I. PATIENT WITH WATSON CATHETER WITH YELLOW URINE WITH TINGED OF BLOOD NOTED. WILL ADMINISTER ALL DUE MEDICATION. ALL NEEDS ARE MET. MADE SURE PATIENT IS COMFORTABLE. SAFETY MEASURE MAINTAINED. BED IN LOW AND LOCKED POSITION, SIDE RAILS UP X2, CALL LIGHT PLACED WITHIN EASY REACH.
[2023-01-15 08:00] VITALS: BP 142/66
[2023-01-15] MEDS: ERYTHROMYCIN BASE OPHTH 3.5 GM TUBE EACHEYE SCH ×2 (08:10→22:35)
[2023-01-15] MEDS: THERAHONEY GEL 1.5 OZ TUBE TP SCH ×2 (08:10→18:23)
[2023-01-15] MEDS: AMMONIUM LACTATE 227 GM BOTTLE TP SCH ×2 (08:10→18:23)
[2023-01-15] MEDS: METOPROLOL SUCCINATE 50 MG TAB.SR.24H PO SCH (08:11)
[2023-01-15] MEDS: ZINC SULFATE 220 MG CAPSULE PO SCH (08:12)
[2023-01-15] MEDS: VIT B CMPLX 3/FA/VIT C/BIOTIN 1 TAB TABLET PO SCH (08:12)
[2023-01-15] MEDS: ASPIRIN 81 MG TAB.CHEW PO SCH (08:12)
[2023-01-15] MEDS: ISOSORBIDE DINITRATE (20MG) 20 MG TABLET PO SCH ×2 (08:12→18:24)
[2023-01-15] MEDS: NIFEdipine XL (30MG) 30 MG TAB PO SCH ×2 (08:12→18:23)
[2023-01-15] MEDS: hydrALAZINE HCL 50 MG TABLET PO SCH ×3 (08:13→18:24)
[2023-01-15] MEDS: VALSARTAN 80 MG TABLET PO SCH (08:13)
[2023-01-15] MEDS: PROSOURCE / PROSTAT (PYXIS) 30 ML UDC GT SCH ×2 (08:14→17:00)
[2023-01-15] MEDS: HEPARIN SODIUM, PORCINE 5000 UNITS/1 ML VIAL SQ SCH ×2 (08:17→22:06)
[2023-01-15] MEDS: POLYETHYLENE GLYCOL 3350 17 GM POWD.PACK PO SCH (08:35)
[2023-01-15 16:00] VITALS: BP 138/61
--- NOTE | 2023-01-15 18:44 | NUR ---
DIAGNOSTIC RADIOLOGIC TECHNOLOGIST CLOSING NOTE; PATIENT IN BED, SLEEPING, BREATHING EVENLY UNLABORED. A/O X3,ARABIC SPEAKING, BLIND, ON 2 L VIA NC TOLERATING WELL,NO SIGN SOB/DISTRESS NOTED, NO COMPLAINS OF PAIN AT THE MOMENT. IV ACCESS ON LEFT WRIST #22G, SALINE LOCK NOTED TO BE INTACT AND PATENT, HD CATHETER ON LEFT CHEST WALL WITH DRESSING C/D/I. PATIENT WITH WATSON CATHETER WITH YELLOW URINE WITH TINGED OF BLOOD NOTED 50 CC OUTPUT. HD THIS AM, 2 l OUT. ALL SCHEDULED MEDS DONE AND NEEDS ARE MET. MADE SURE PATIENT IS COMFORTABLE. SAFETY MEASURE MAINTAINED. BED IN LOW AND LOCKED POSITION, SIDE RAILS UP X2, CALL LIGHT PLACED WITHIN EASY REACH. WILL ENDORSE TO NEXT SHIFT.
[2023-01-15 20:00] VITALS: BP 129/54
--- NOTE | 2023-01-15 22:06 | NUR ---
ANTICOAGULANT H/H 10. PLT 171 No visible bleeding. Given Heparin injection, co-signed by SERGEY Watts.
[2023-01-15] MEDS: ATORVASTATIN 40 MG TABLET PO SCH (22:08)
[2023-01-15] MEDS: TAMSULOSIN 0.4 MG CAP.SR.24H PO SCH (22:08)
[2023-01-15] MEDS: SENNOSIDES 8.6 MG TABLET PO SCH (22:08)
[2023-01-15] MEDS: INSULIN REGULAR, HUMAN 100 UNIT/ML 3 ML VIAL SQ PRN (22:35)
--- NOTE | 2023-01-16 06:07 | NUR ---
END OF SHIFT REPORT Patient in bed, Alert Oriented x2-3. Oxygen sat high 90's in 3L NC. Sinus rhythm in laboratory monitor HR 63. IV Left hand intact. Bld glucose monitored. Left chest wall Perma cath intact, dressing clean and dry. Denies chest pain, no c/o N/V. LifeVest in place. Turned and repositioned, had BM during the night, Sandoval cath care. Santosh foot off load at all times. Plan for continue wound care, Fluid management with Dialysis treatment. Fall/skin precaution maintained. Will endorse to oncoming RN.
[2023-01-16 06:08] LABS: BASOPHILS % (AUTO) 0.5 % (0.0-2.0); EOSINOPHILS % (AUTO) 1.9 % (0.0-6.0); HEMATOCRIT 34 % (39-51); HEMOGLOBIN 10.5 g/dL (13.5-17.5); LYMPHOCYTES # (AUTO) 0.9 K/uL (0.8-4.8); LYMPHOCYTES % (AUTO) 9.9 % (20.0-44.0); MEAN CORPUSCULAR HGB CONC 31 g/dl (31.0-36.0); MEAN CORPUSCULAR VOLUME 105 fL (80-96); MONOCYTES # (AUTO) 0.6 K/uL (0.1-1.30); MONOCYTES % (AUTO) 6.5 % (2.0-12.0); NEUTROPHILS # (AUTO) 7.1 K/uL (1.8-8.9); NEUTROPHILS % (AUTO) 81.2 % (43.0-81.0); PLATELET COUNT (AUTO) 134 K/uL (150-450); RED BLOOD CELL COUNT(AUTO) 3.22 MIL/uL (4.5-6.0); WHITE BLOOD COUNT (AUTO) 8.8 K/uL (4.3-11.0)
[2023-01-16] MEDS: INSULIN REGULAR, HUMAN 100 UNIT/ML 3 ML VIAL SQ PRN ×2 (06:12→17:43)
[2023-01-16] MEDS: BLOOD SUGAR DIAGNOSTIC 1 EACH STRIP IN SCH ×4 (06:12→21:22)
[2023-01-16 06:37] LABS: CALCIUM, SERUM 8.3 mg/dL (8.5-10.1); CREATININE 2.6 mg/dL (0.6-1.3); MAGNESIUM 2.1 mg/dL (1.8-2.4); PHOSPHORUS 2.5 mg/dL (2.5-4.9); POTASSIUM 3.9 mmol/L (3.5-5.1)
--- NOTE | 2023-01-16 07:30 | NUR ---
BODY MAN OPENING NOTES RECEIVED PATIENT ON BED RESTING AND A/O X4. ON O2 AT 3LPM VIA NASAL CANNULA TOLERATING WELL. NO SOB NOTED. NOT IN DISTRESS. WITH NO COMPLAINTS OF PAIN AT THIS TIME. ON TELE MONITOR CURRENTLY READING SINUS RHYTHM AT 61BPM. WITH LIFEVEST IN PLACED. WITH LEFT CHEST WALL PERMACATH WITH CLEAN AND DRY DRESSING. WITH IV ACCESS AT THE LEFT HAND G22 SALINE LOCKED, PATENT AND INTACT. WITH WATSON CATHETER IN PLACED DRAINING MCKAYLA COLORED URINE. SAFETY MEASURES IN PLACED. CALL LIGHT WITHIN REACH. BED ON LOWEST LOCKED POSITION, SIDE RAILS UP X2. WILL CONTINUE TO MONITOR.
[2023-01-16 08:31] VITALS: BP 125/62
[2023-01-16] MEDS: HEPARIN SODIUM, PORCINE 5000 UNITS/1 ML VIAL SQ SCH ×2 (08:45→21:03)
[2023-01-16] MEDS: ASPIRIN 81 MG TAB.CHEW PO SCH (08:46)
[2023-01-16] MEDS: VIT B CMPLX 3/FA/VIT C/BIOTIN 1 TAB TABLET PO SCH (08:46)
[2023-01-16] MEDS: POLYETHYLENE GLYCOL 3350 17 GM POWD.PACK PO SCH (08:46)
[2023-01-16] MEDS: ZINC SULFATE 220 MG CAPSULE PO SCH (08:46)
[2023-01-16] MEDS: PROSOURCE / PROSTAT (PYXIS) 30 ML UDC GT SCH ×2 (08:50→16:56)
[2023-01-16] MEDS: VALSARTAN 80 MG TABLET PO SCH (09:00)
[2023-01-16] MEDS: ISOSORBIDE DINITRATE (20MG) 20 MG TABLET PO SCH ×2 (09:00→16:55)
[2023-01-16] MEDS: NIFEdipine XL (30MG) 30 MG TAB PO SCH ×2 (09:00→16:55)
[2023-01-16] MEDS: ERYTHROMYCIN BASE OPHTH 3.5 GM TUBE EACHEYE SCH ×2 (09:00→21:01)
[2023-01-16] MEDS: hydrALAZINE HCL 50 MG TABLET PO SCH ×3 (09:00→16:55)
[2023-01-16] MEDS: METOPROLOL SUCCINATE 50 MG TAB.SR.24H PO SCH (09:00)
[2023-01-16] MEDS: THERAHONEY GEL 1.5 OZ TUBE TP SCH ×2 (09:59→16:56)
[2023-01-16] MEDS: AMMONIUM LACTATE 227 GM BOTTLE TP SCH ×2 (09:59→16:56)
[2023-01-16 12:00] VITALS: BP 143/67
[2023-01-16 15:59] VITALS: BP 140/98
--- NOTE | 2023-01-16 19:17 | NUR ---
METAL STUD FRAMER CLOSING NOTES PATIENT ON BED RESTING AND A/O X4. ON O2 AT 3LPM VIA NASAL CANNULA TOLERATING WELL. NO SOB NOTED. NOT IN DISTRESS. WITH NO COMPLAINTS OF PAIN AT THIS TIME. ON TELE MONITOR CURRENTLY READING SINUS RHYTHM AT 70BPM. WITH LIFEVEST IN PLACED. WITH LEFT CHEST WALL PERMACATH WITH CLEAN AND DRY DRESSING. WITH IV ACCESS AT THE LEFT HAND G22 SALINE LOCKED, PATENT AND INTACT. WITH WATSON CATHETER IN PLACED DRAINING MCKAYLA COLORED URINE. HD DONE THIS MORNING WITH 2L FLUID OUTPUT. DUE MEDS GIVEN. SAFETY MEASURES IN PLACED. CALL LIGHT WITHIN REACH. BED ON LOWEST LOCKED POSITION, SIDE RAILS UP X2. WILL ENDORSE TO NEXT SHIFT FOR SHANNON.
[2023-01-16 20:00] VITALS: BP 139/59
--- NOTE | 2023-01-16 20:01 | NUR ---
received pt in bed asleep 02 3liters sats 99% resp even and unlabored life vest on HOB elevated 40%
[2023-01-16] MEDS: TAMSULOSIN 0.4 MG CAP.SR.24H PO SCH (21:27)
[2023-01-16] MEDS: SENNOSIDES 8.6 MG TABLET PO SCH (21:28)
[2023-01-16] MEDS: ATORVASTATIN 40 MG TABLET PO SCH (21:28)
[2023-01-17 00:46] VITALS: BP 160/75
[2023-01-17 04:00] VITALS: BP 135/74
--- NOTE | 2023-01-17 04:47 | NUR ---
CLOSING NOTES: ALERT AND ORIENTATED X2 NO SOB OR UNLABORED BREATHING THIS 12 HRS. 02 3 LITERS SATS 97 - 00 % SKIN WARM AND DRY NOTED MIKEY FEET TOES AMPUTATED BORIS IN PLACE [facility] HAS SEBASTIEN ORDERED COMFORTABLE HIS
[2023-01-17 05:07] VITALS: BP 135/74
--- NOTE | 2023-01-17 05:30 | NUR ---
CLOSING NOTES: SLEPT THRU THE NIGHT WATSON CATH OUTPUT NONE THIS 12 HOURS NO SOB NO LABORED BREATHING DOES MAKE HIS NEEDS KNOWN COOPERATIVE SCHEDULED FOR h\HD TODAY LAST DONE 01/16/23 YESTERDAY
[2023-01-17] MEDS: BLOOD SUGAR DIAGNOSTIC 1 EACH STRIP IN SCH ×4 (06:06→21:56)
[2023-01-17 07:00] VITALS: BP 157/68
--- NOTE | 2023-01-17 07:20 | NUR ---
COMMERCIAL BANKER OPENING NOTES RECEIVED PATIENT AWAKE IN BED WITH HOB ELAVATED, PATIENT ISN'T OPENING HIS EYES BUT RESPONDING AND FOLLOWS SIMPLE COMMANDS, A/OX3, TURKISH SPEAKING, RECEIVING O2 AT 3LPM VIA NASAL CANNULA TOLERATING WELL, NO SOB NOTED. NOT SHOWING ANY ACUTE DISTRESS. NO COMPLAINTS OF PAIN NOR DISCOMFORT AT THIS TIME. ON TELE MONITORING WITH CURRENT READING OF SINUS RHYTHM AT [address] WELL. WITH LEFT CHEST WALL PERMACATH DRESSING C/D/I/ WITH IV ACCESS AT THE LEFT WRIST G#20 SALINE LOCKED, PATENT AND INTACT, FLUSHING WELL. WITH WATSON CATHETER IN PLACE DRAINING DARK YELLOW URINE <50 ML. FOR HD TODAY. SAFETY MEASURES IN PLACE: BED IN LOWEST AND LOCKED POSITION, SIDE RAILS UP X2, CALL LIGHT AND TRAY TABLE WITHIN EASY REACH. WILL CONTINUE TO MONITOR.
[2023-01-17] MEDS: hydrALAZINE HCL 50 MG TABLET PO SCH ×5 (09:00→16:44)
--- NOTE | 2023-01-17 11:00 | NUR ---
RN NOTES - DIALYSIS DONE, 1.5 L OUT, PATIENT IS STABLE, PERMACATH DRESSING C/D/I
[2023-01-17] MEDS: PROSOURCE / PROSTAT (PYXIS) 30 ML UDC GT SCH ×2 (11:37→16:48)
[2023-01-17] MEDS: HEPARIN SODIUM, PORCINE 5000 UNITS/1 ML VIAL SQ SCH ×2 (11:58→21:13)
[2023-01-17] MEDS: THERAHONEY GEL 1.5 OZ TUBE TP SCH ×2 (11:59→16:45)
[2023-01-17] MEDS: AMMONIUM LACTATE 227 GM BOTTLE TP SCH ×2 (11:59→16:45)
[2023-01-17] MEDS: ZINC SULFATE 220 MG CAPSULE PO SCH (12:00)
[2023-01-17] MEDS: ASPIRIN 81 MG TAB.CHEW PO SCH (12:00)
[2023-01-17] MEDS: POLYETHYLENE GLYCOL 3350 17 GM POWD.PACK PO SCH (12:00)
[2023-01-17] MEDS: ISOSORBIDE DINITRATE (20MG) 20 MG TABLET PO SCH ×2 (12:01→16:45)
[2023-01-17] MEDS: VALSARTAN 80 MG TABLET PO SCH (12:01)
[2023-01-17] MEDS: VIT B CMPLX 3/FA/VIT C/BIOTIN 1 TAB TABLET PO SCH (12:03)
[2023-01-17] MEDS: METOPROLOL SUCCINATE 50 MG TAB.SR.24H PO SCH (12:04)
[2023-01-17] MEDS: NIFEdipine XL (30MG) 30 MG TAB PO SCH ×2 (12:04→16:44)
[2023-01-17] MEDS: ERYTHROMYCIN BASE OPHTH 3.5 GM TUBE EACHEYE SCH ×2 (12:06→21:23)
[2023-01-17] MEDS: INSULIN REGULAR, HUMAN 100 UNIT/ML 3 ML VIAL SQ PRN (12:08)
--- NOTE | 2023-01-17 12:27 | NUR ---
RN NOTES -HYDRALAZINE HCL SCHEDULED AT 0900 WASN'T GIVEN D/T DIALYSIS. WILL GIVE 1200 SCHEDULED
--- NOTE | 2023-01-17 12:31 | NUR ---
RN NOTES - PT COMPLAINING OF MILD PAIN, TYLENOL 650 PO GIVEN.
--- NOTE | 2023-01-17 15:34 | NUR ---
RN NOTES - PATIENT REQUESTED FOR HIS LIFE VEST TO BE REMOVED BECAUSE IT IS UNCOMFORTABLE AND PAINFUL PER PATIENT DESPITE FOAM DRESSING AND OFFLOADING MEASURES. PATIENT IS AWARE OF THE NEED FOR THE DEVICE LIFE EXTENDING FOR HIM PRESCRIBED BY SENIOR ADVISOR BUT HE DOESN'T WANT IT. WITNESSED BY 2 ROTO ROOTER OPERATOR - BRISEIDA AND MADIHA.
--- NOTE | 2023-01-17 17:46 | NUR ---
RN NOTES - BLOOD GLUCOSE = 67, GIVEN PATIENT JUICE SLOWLY PER PT REQUEST, WILL CHECK AGAIN LATER.
--- NOTE | 2023-01-17 19:45 | NUR ---
BATCH DUMPER OPENING NOTES PATIENT AWAKE IN BED WITH HOB ELEVATED, A/OX3, SUDANESE SPEAKING, STILL ON O2 @ 3LPM VIA NASAL CANNULA TOLERATING WELL, NO SOB NOTED. NOT SHOWING ANY ACUTE DISTRESS. DENIES COMPLAINTS OF PAIN NOR DISCOMFORT AT THIS TIME. ON TELE MONITORING WITH CURRENT READING OF SINUS ALEXSANDRA AT 59 BPM. WITH LEFT CHEST WALL PERMACATH DRESSING C/D/I. STILL IV ACCESS AT THE LEFT WRIST G#20 SALINE LOCKED, PATENT AND INTACT, FLUSHING WELL. WATSON CATH DRAINED 60 ML TODAY, 1500 OUT FROM HD TODAY.ALL DUE MEDS GIVEN, ALL NEEDS MET. SAFETY MEASURES MAINTAINED: BED IN LOWEST AND LOCKED POSITION, SIDE RAILS UP X2, CALL LIGHT AND TRAY TABLE WITHIN EASY REACH. ENDORSED TO TREE FELLER NURSE.
[2023-01-17 20:00] VITALS: BP 118/62
[2023-01-17] MEDS: TAMSULOSIN 0.4 MG CAP.SR.24H PO SCH (21:11)
[2023-01-17] MEDS: ATORVASTATIN 40 MG TABLET PO SCH (21:12)
[2023-01-17] MEDS: SENNOSIDES 8.6 MG TABLET PO SCH (21:12)
[2023-01-18] VITALS: BP 113/61
[2023-01-18 04:00] VITALS: BP 129/60
--- NOTE | 2023-01-18 05:04 | NUR ---
CLOSING NOTES: A/OX3 TURKMEN SPEAKING BUT ABLE TO MAKE HIS NEEDS KNOWN KEPT HEELS OFF THE BED ELEVATED WITH PILLOWS WATSON IN PLACE PATIENT IS ON HD AND MAKES SMALL AMOUNT URINE ORDER IS WRITTEN FOR DC TODAY AFTER HD HE WILL BE DC TO [facility] 02 3LITERS SATS 100% ON THE TELE MONITOR HE READS SB SR SKIN WARM AND DRY AT THIS TIME LIFE VEST IS OFF SINCE YESTERDAY AWARE
[2023-01-18] MEDS: BLOOD SUGAR DIAGNOSTIC 1 EACH STRIP IN SCH ×2 (06:29→11:35)
--- NOTE | 2023-01-18 07:18 | NUR ---
STEM MAKER OPENING NOTES RECEIVED PATIENT AWAKE IN BED WITH HOB ELEVATED, RESPONSIVE, A/OX3, ENGLISH SPEAKING, RECEIVING O2 AT 3LPM VIA NASAL CANNULA TOLERATING WELL, NO SOB NOTED. NOT SHOWING ANY ACUTE DISTRESS. NO COMPLAINTS OF PAIN NOR DISCOMFORT AT THIS TIME. ON TELE MONITORING WITH CURRENT READING OF SINUS RHYTHM AT 67 BPM. WITH LEFT CHEST WALL PERMACATH DRESSING C/D/I/ WITH IV ACCESS AT THE LEFT WRIST G#20 SALINE LOCKED, PATENT AND INTACT, FLUSHING WELL. WITH WATSON CATHETER IN PLACE DRAINING DARK YELLOW URINE AT THIS TIME. SAFETY MEASURES IN PLACE: BED IN LOWEST AND LOCKED POSITION, SIDE RAILS UP X2, CALL LIGHT AND TRAY TABLE WITHIN EASY REACH. WILL CONTINUE PLAN OF CARE: FOR HD TODAY AND DC AFTER.
[2023-01-18 08:00] VITALS: BP 107/60
[2023-01-18] MEDS: hydrALAZINE HCL 50 MG TABLET PO SCH ×2 (09:00→13:25)
--- NOTE | 2023-01-18 09:00 | NUR ---
RN NOTES - PLACED BP MEDS ON HOLD D/T DIALYSIS. WILL HOLD OFF UNTIL DONE AND WILL CHECK BP.
[2023-01-18] MEDS: ERYTHROMYCIN BASE OPHTH 3.5 GM TUBE EACHEYE SCH (09:16)
[2023-01-18] MEDS: ZINC SULFATE 220 MG CAPSULE PO SCH (09:16)
[2023-01-18] MEDS: VIT B CMPLX 3/FA/VIT C/BIOTIN 1 TAB TABLET PO SCH (09:16)
[2023-01-18] MEDS: PROSOURCE / PROSTAT (PYXIS) 30 ML UDC GT SCH (09:16)
[2023-01-18] MEDS: ASPIRIN 81 MG TAB.CHEW PO SCH (09:16)
[2023-01-18] MEDS: THERAHONEY GEL 1.5 OZ TUBE TP SCH (09:17)
[2023-01-18] MEDS: AMMONIUM LACTATE 227 GM BOTTLE TP SCH (09:17)
[2023-01-18] MEDS: POLYETHYLENE GLYCOL 3350 17 GM POWD.PACK PO SCH (09:21)
--- NOTE | 2023-01-18 10:21 | NUR ---
RN NOTES - DIALYSIS HAS STARTED, PATIENT IS TO BE DC'D THIS AFTERNOON PER CM.
--- NOTE | 2023-01-18 11:20 | NUR ---
RN NOTES - PATIENT ABLE TO TOLERATE O2 OF 2LPM VIA NC, SATURATING AT 99% WITHOUT ANY SOB
--- NOTE | 2023-01-18 11:32 | NUR ---
RN NOTES - COVID TEST DONE AND SENT TO THE LAB STAT PER CM'S REQUEST
[2023-01-18 12:00] VITALS: BP 124/57
--- NOTE | 2023-01-18 12:05 | NUR ---
RN NOTES - DIALYSIS DONE - 1.5 LITERS OUT
[2023-01-18] MEDS: VALSARTAN 80 MG TABLET PO SCH (12:39)
[2023-01-18] MEDS: ISOSORBIDE DINITRATE (20MG) 20 MG TABLET PO SCH (12:40)
[2023-01-18] MEDS: NIFEdipine XL (30MG) 30 MG TAB PO SCH (12:40)
[2023-01-18] MEDS: METOPROLOL SUCCINATE 50 MG TAB.SR.24H PO SCH (12:42)
[2023-01-18 13:25] VITALS: BP 128/64
--- NOTE | 2023-01-18 14:34 | NUR ---
TELE TRACK MACHINE OPERATOR REPAIRER NOTES PT DISCHARGED TO [facility] IN STABLE CONDITION. PT AOX3-4, CZECH SPEAKING PATIENT, ABLE TO MAKE NEEDS KNOWN. ON 2LPM OXYGEN VIA NC SATURATING WELL WITH SPO2 OF 100%. NO SOB NOTED. NOT IN ANY FORM OF ACUTE DISTRESS. LAST TELE READING WAS SINUS RHYTHM AT 75 BPM. VITAL SIGNS TAKEN, STABLE AND RECORDED. PT'S SKIN IS NOTED TO HAVE THE SAME WOUNDS POA, REFUSED PICTURES TAKEN AGAIN. PICTURE TAKEN IN THE LAST 24 HOURS. WOUND CARE PROVIDED. DENIES PAIN NOR DISCOMFORT AT THIS TIME. ALL BELONGINGS ACCOUNTED FOR: CELLPHONE AND STREET PHOTOGRAPHER PLUS LIFE VEST PLACED IN ITS ORIGINAL BOX. DISCHARGE INSTRUCTIONS GIVEN TO MANDI CHARGE NURSE. Integrated biometrics AND myhub TEST COPIES PROVIDED. IV ACCESS ON LEFT WRIST REMOVED, PRESSURE DRESSING APPLIED NO BLEEDING NOTED. WATSON CATHETER REMOVED PER REQUEST OF CHARGE NURSE. PT LEFT THE UNIT AT 1430 ACCOMPANIED BY 2 SURVEYOR INSTRUMENT ASSISTANT. CHARGE NURSE AND MD AWARE OF DISCHARGE.
== END 2023-01-18 14:30 | DRG 194 ==
LOC: ER 00:19 → TELE 04:00
PROVIDERS: ADMIT Nurse Practitioner Family; ATTEND Internal Medicine
PROC: 5A1D70Z Performance of Urinary Filtration, Intermittent, Less than 6 Hours Per Day (ICD-10-PCS; principal; 2023-01-12)
DX: I13.2 Hypertensive heart and chronic kidney disease with heart failure and with stage 5 chronic kidney disease, or end stage renal disease (principal); J96.01 Acute respiratory failure with hypoxia; E44.0 Moderate protein-calorie malnutrition; E88.09 Other disorders of plasma-protein metabolism, not elsewhere classified; D63.1 Anemia in chronic kidney disease; L97.329 Non-pressure chronic ulcer of left ankle with unspecified severity; I27.22 Pulmonary hypertension due to left heart disease; L97.519 Non-pressure chronic ulcer of other part of right foot with unspecified severity; N18.6 End stage renal disease; D50.9 Iron deficiency anemia, unspecified; E11.22 Type 2 diabetes mellitus with diabetic chronic kidney disease; I42.9 Cardiomyopathy, unspecified; E11.51 Type 2 diabetes mellitus with diabetic peripheral angiopathy without gangrene; E78.5 Hyperlipidemia, unspecified; I50.23 Acute on chronic systolic (congestive) heart failure; H10.9 Unspecified conjunctivitis; H54.61 Unqualified visual loss, right eye, normal vision left eye; E11.621 Type 2 diabetes mellitus with foot ulcer; M89.8X9 Other specified disorders of bone, unspecified site; T81.89XA Other complications of procedures, not elsewhere classified, initial encounter; Y83.8 Other surgical procedures as the cause of abnormal reaction of the patient, or of later complication, without mention of misadventure at the time of the procedure; Y92.89 Other specified places as the place of occurrence of the external cause; L97.529 Non-pressure chronic ulcer of other part of left foot with unspecified severity; R62.7 Adult failure to thrive; E11.622 Type 2 diabetes mellitus with other skin ulcer; Z20.822 Contact with and (suspected) exposure to COVID-19; Z79.82 Long term (current) use of aspirin; Z87.891 Personal history of nicotine dependence; Z89.432 Acquired absence of left foot; Z89.431 Acquired absence of right foot; Z99.2 Dependence on renal dialysis; Z79.899 Other long term (current) drug therapy
CPT/HCPCS: 36415; 71045-TC; 80048-TC; 80061-TC; 80076-TC; 81001; 82962-TC; 83605-TC; 83735-TC; 83880; 84100-TC; 84484-TC; 85025-TC; 85730-TC; 86706; 87040-TC; 87081-TC; 87340; 90935-TC; 93307-TC; A4223; A6403; C9803; G0378; J0360; J0692; J1644; J1815; J1940; J3490; J7030; J7050; J7060

== ENCOUNTER 2023-02-18 11:00 | Inpatient (IN) | payer MEDICAID, OTHER ==
[~2023-02-18] VITALS: Ht 177.8 cm; Wt 52.2 kg
[~2023-02-18 11:00] MED LIST changes: +ACET-868 PO; -ASCO500C17 PO; -ASPI-1169 PO; +ASPI-1420 PO; +BISA10SU11 RC; +CHOL100043 PO; +CLON0.1T PO; +FERR325T23 PO; +HYDR-4303 PO; +MAGN400O6 PO; +METO25TA3 PO; -METO25TA4 PO; +NA P133E RC; +NUT.237L67 PO; +ONDA4TAB11 SL; -PATI8.4P PO
--- NOTE | 2023-02-18 11:00 | NUR ---
HECTOR MONTGOMERY FROM [facility], HAD A RECENT SWITCH IN INSURANCE AND WASNT ABLE TO GO TO DIALYSIS TODAY, DIALYSIS SCHEDULE IS ,FRI. PATIENT AOX3 RECIEVED PATIENT ON OXYGEN 2L NASAL CANULA, ATTACHED PATIENT ON MONITOR. WILL CONTINUE TO MONITOR PATIENT.
--- NOTE | 2023-02-18 11:21 | NUR ---
JUKEBOX COIN COLLECTOR AT THE BEDSIDE
--- NOTE | 2023-02-18 11:36 | NUR ---
COVID SWAB DONE AND SENT TO THE LAB
[2023-02-18 11:48] LABS: BASOPHILS # (AUTO) 0.1 K/uL (0.0-0.2); BASOPHILS % (AUTO) 1.9 % (0.0-2.0); EOSINOPHILS % (AUTO) 4.5 % (0.0-6.0); HEMATOCRIT 39 % (39-51); HEMOGLOBIN 12.2 g/dL (13.5-17.5); LYMPHOCYTES # (AUTO) 1.1 K/uL (0.8-4.8); LYMPHOCYTES % (AUTO) 16.9 % (20.0-44.0); MEAN CORPUSCULAR HGB CONC 32 g/dl (31.0-36.0); MEAN CORPUSCULAR VOLUME 101 fL (80-96); MONOCYTES # (AUTO) 0.4 K/uL (0.1-1.30); MONOCYTES % (AUTO) 5.7 % (2.0-12.0); NEUTROPHILS # (AUTO) 4.8 K/uL (1.8-8.9); PLATELET COUNT (AUTO) 155 K/uL (150-450); RED BLOOD CELL COUNT(AUTO) 3.84 MIL/uL (4.5-6.0); WHITE BLOOD COUNT (AUTO) 6.8 K/uL (4.3-11.0)
[2023-02-18 11:53] LABS: CALCIUM, SERUM 8.7 mg/dL (8.5-10.1); CREATININE 5.6 mg/dL (0.6-1.3); POTASSIUM 4.4 mmol/L (3.5-5.1)
--- NOTE | 2023-02-18 12:40 | NUR ---
[facility] N[facility]SE L[facility] THE PATIENT GETS DIALYSIS AT [facility] ([phone]). DIALYSIS DAYS ARE T-TH-SAT.
--- NOTE | 2023-02-18 14:14 | NUR ---
HAYLEY FROM REFERED [facility] [phone]
--- NOTE | 2023-02-18 14:32 | NUR ---
CALLED DR. PELAEZ [phone] DR. CARCAMO. VENTURA
--- NOTE | 2023-02-18 15:04 | NUR ---
VITALS REASSESSED BP 186/72 HR 57 PILSE 57 RR 17 O2 100
--- NOTE | 2023-02-18 15:22 | NUR ---
CALLED DR. PELAEZ [phone] PER VENTURA JACKMAN IN THE OFFICE AND SEEING PATIENTS. WILL CALL US BACK SHORTLY.
--- NOTE | 2023-02-18 15:48 | NUR ---
CALLED DR. PELAEZ AGAIN AT [phone] DR. CARCAMO. VENTURA
--- NOTE | 2023-02-18 16:28 | NUR ---
CALLED DR. PELAEZ AGAIN. [phone] DR[address] CARCAMO. VENTURA
--- NOTE | 2023-02-18 16:30 | NUR ---
CALLED HAYLEY FROM RE[facility]ED [facility] [phone] OPTION 1 NO AFTER HOURS NUMBER.
[2023-02-18] MEDS ORDERED: hydrALAZINE HCL IV 20 MG VIAL ONE ×2 (16:58→20:07)
[2023-02-18] MEDS ORDERED: hydrALAZINE HCL IV 20 MG VIAL IV ONE ×3 (17:00→21:30)
--- NOTE | 2023-02-18 17:03 | NUR ---
CALLED HAYLEY FROM [facility] [phone] [facility]ION 7 NO ANSWER.
--- NOTE | 2023-02-18 17:09 | NUR ---
ADMINISTERED IV PUSH DUE TO HIGH BP 201/81 OMARI Johnson
--- NOTE | 2023-02-18 18:27 | NUR ---
PATIENT WAS GIVEN BP MEDS AND AL IS STILL HIGH, DR NOTIFIED
[2023-02-18] MEDS ORDERED: CLONIDINE HCL 0.1 MG TABLET PO ONE (18:30)
[2023-02-18] MEDS ORDERED: CLONIDINE HCL 0.1 MG TABLET ONE (19:00)
--- NOTE | 2023-02-18 19:16 | NUR ---
RO CM [phone]
--- NOTE | 2023-02-18 19:21 | NUR ---
REPORT GIVEN TO NURSE MORA FOR SHANNON
[2023-02-18] MEDS ORDERED: MAG HYDROX/AL HYDROX/SIMETH 30 ML UDC PO PRN (20:00)
[2023-02-18] MEDS ORDERED: MAGNESIUM HYDROXIDE 30 ML UDC PO PRN ×2 (20:00)
[2023-02-18] MEDS ORDERED: BISACODYL SUPP (10 MG) 10 MG/SUPP.RECT SUPP.RECT RC PRN (20:00)
[2023-02-18] MEDS ORDERED: ONDANSETRON 4 MG TAB.RAPDIS SL PRN (20:00)
[2023-02-18] MEDS ORDERED: Z GUARD REMEDY 4 OZ OINT TP PRN (20:00)
[2023-02-18] MEDS ORDERED: HYDROCODONE/APAP 5/325MG TABLET PO PRN (20:00)
[2023-02-18] MEDS ORDERED: ONDANSETRON HCL/PF 4 MG/2 ML VIAL IVP PRN (20:00)
[2023-02-18] MEDS ORDERED: ACETAMINOPHEN 325 MG TABLET PO PRN (20:00)
[2023-02-18] MEDS ORDERED: ZOLPIDEM TARTRATE 5 MG TABLET PO PRN (20:00)
--- NOTE | 2023-02-18 20:01 | NUR ---
ASSIGNED 120-2
--- NOTE | 2023-02-18 20:04 | NUR ---
ALEXIA AWARE OF PT'S ELEVATED BP. WILL GIVE ONE DOSE OF HYDRALAZINE AND GIVE REPORT TO BETTIE FOR TRANSFER.
--- NOTE | 2023-02-18 20:12 | NUR ---
IV HYDRALAZINE GIVEN
--- NOTE | 2023-02-18 20:17 | NUR ---
REPORT GIVEN TO ALEJANDRA RINCON BETTIE
[2023-02-18 20:30] VITALS: BP 191/86
--- NOTE | 2023-02-18 20:33 | NUR ---
PT TRANSFERED TO 102 VIA ACLS PROTOCOL
--- NOTE | 2023-02-18 20:36 | NUR ---
RN ADMITTING NOTE Received patient from ER via teagan accompanied by Luiz RINCON and EMT, patient AAO x 3, persian speaking, SHIRLEY Pascal able to help with translation, breathing unlabored, saturation at 99% on room air, SR on the monitor, HR is 65. IV line at RAC 20g patent and flushing well, saline locked. Noted with HD cath at L chest, dressing clean and dry. 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 Safety measures in place, bed is locked and at lowest position, bed alarm on, HOB elevated, call light within reach of patient. Will continue to monitor and carry out MD orders.
[2023-02-18] MEDS: ATORVASTATIN 40 MG TABLET PO SCH (21:30)
[2023-02-18] MEDS: TAMSULOSIN 0.4 MG CAP.SR.24H PO SCH (21:30)
[2023-02-18 22:00] VITALS: BP 174/80
[2023-02-18] MEDS ORDERED: INSULIN REGULAR, HUMAN 100 UNIT/ML 3 ML VIAL SQ PRN (22:00)
[2023-02-18] MEDS ORDERED: BLOOD SUGAR DIAGNOSTIC 1 EACH STRIP IN SCH (22:00)
[2023-02-18] MEDS ORDERED: DEXTROSE 50%-WATER 50 ML DISP.SYRIN IV PRN ×2 (22:00→22:30)
[2023-02-19] VITALS: BP 178/84
[2023-02-19] MEDS: hydrALAZINE HCL 50 MG TABLET PO SCH ×5 (00:08→23:02)
[2023-02-19 04:00] VITALS: BP 121/90
--- NOTE | 2023-02-19 06:15 | NUR ---
RN note Patient signed consent for dialysis witnessed by myself and charge out clerk Marie. HD started, VS WNL.Will continue to monitor. HD RN at bedside
[2023-02-19 07:03] LABS: HEMATOCRIT 36 % (39-51); HEMOGLOBIN 11.4 g/dL (13.5-17.5); LYMPHOCYTES # (AUTO) 3.4 K/uL (0.8-4.8); MEAN CORPUSCULAR HGB CONC 32 g/dl (31.0-36.0); MEAN CORPUSCULAR VOLUME 99 fL (80-96); MONOCYTES # (AUTO) 1.1 K/uL (0.1-1.30); MONOCYTES % (AUTO) 16.7 % (2.0-12.0); NEUTROPHILS # (AUTO) 2.3 K/uL (1.8-8.9); NEUTROPHILS % (AUTO) 33.3 % (43.0-81.0); PLATELET COUNT (AUTO) 139 K/uL (150-450); RED BLOOD CELL COUNT(AUTO) 3.65 MIL/uL (4.5-6.0); WHITE BLOOD COUNT (AUTO) 6.8 K/uL (4.3-11.0)
[2023-02-19 07:15] LABS: CALCIUM, SERUM 8.4 mg/dL (8.5-10.1); CREATININE 5.6 mg/dL (0.6-1.3); MAGNESIUM 2.3 mg/dL (1.8-2.4); PHOSPHORUS 7.5 mg/dL (2.5-4.9); POTASSIUM 4.2 mmol/L (3.5-5.1)
[2023-02-19] MEDS: BLOOD SUGAR DIAGNOSTIC 1 EACH STRIP IN SCH ×4 (07:27→21:09)
--- NOTE | 2023-02-19 07:43 | NUR ---
MARKETING TECHNOLOGIST OPENING NOTE RECEIVED PT ALERT AND ORIENTED X3, TRINIDADIAN SPEAKING CURRENTLY RECEIVING DIALYSIS. ON TELE MONITOR AT SR 60. O2 SATURATION ON ROOM AIR TOLERATING WELL. PT HAS RAC 20 GUAGE, IV INTACT, PATENT AND FLUSHING WELL. PT HAS HD CATH AT LEFT CHEST, CLEAN AND DRY. ALL SAFETY MEASURES IN PLACE. CALL LIGHT WITHIN REACH.BED LOCKED AT LOWEST POSITION. SIDE RAILS UP X2. BED ALARM ON
[2023-02-19 08:00] VITALS: BP 153/69
[2023-02-19] MEDS ORDERED: NEPRO VAN 237 ML CAN PO PRN (08:30)
--- NOTE | 2023-02-19 09:29 | NUR ---
rn note dialysis complete. dialysis nurse removed 2 L. pt tolerated well
--- NOTE | 2023-02-19 09:46 | NUR ---
WOUND CARE CONSULT: PT HAVING HEMODIALYSIS AT THIS TIME. DR ISSA CALLED FOR LOWER EXTREMITY WOUNDS, PRESENT ON ADMISSION. PT KNOWN TO HAVE SACRAL SCARRING. DISCUSSED SKIN PROTECTION WITH NURSING STAFF. PT IS ON WHEATLAND ISOFLEX LOW AIRLOSS BED. IN AGREEMENT WITH PLAN OF CARE.
[2023-02-19] MEDS: ASPIRIN EC 81 MG TABLET.DR PO SCH (10:38)
[2023-02-19] MEDS: LOSARTAN POTASSIUM 50 MG TABLET PO SCH ×2 (10:38→17:03)
[2023-02-19] MEDS: VIT B CMPLX 3/FA/VIT C/BIOTIN 1 TAB TABLET PO SCH (10:39)
[2023-02-19] MEDS: FERROUS SULFATE (325 MG) 325 MG/TAB TABLET PO SCH (10:39)
[2023-02-19] MEDS: SENNOSIDES 8.6 MG TABLET PO SCH (10:39)
[2023-02-19] MEDS: NIFEdipine XL (30MG) 30 MG TAB PO SCH (10:40)
[2023-02-19 12:00] VITALS: BP 166/77
[2023-02-19] MEDS: METOPROLOL SUCCINATE 50 MG TAB.SR.24H PO SCH (12:19)
[2023-02-19 16:00] VITALS: BP 144/71
--- NOTE | 2023-02-19 19:13 | NUR ---
DISH MAKER CLOSING NOTE PT ALERT AND ORIENTED X3, PASHTO SPEAKING CURRENTLY RECEIVING DIALYSIS. ON TELE MONITOR AT SR 65. O2 SATURATION ON ROOM AIR TOLERATING WELL. PT HAS RAC 20 GUAGE, IV INTACT, PATENT AND FLUSHING WELL. PT HAS HD CATH AT LEFT CHEST, CLEAN AND DRY. ALL SAFETY MEASURES IN PLACE. CALL LIGHT WITHIN REACH.BED LOCKED AT LOWEST POSITION. SIDE RAILS UP X2. BED ALARM ON.ENDORSED TO RESEARCH & ANALYTICS MANAGER RN FOR CONTUITY OF CARE
--- NOTE | 2023-02-19 19:30 | NUR ---
FRONT END SOFTWARE DEVELOPER OPENING NOTE Received patient in bed resting comfortably, patient is A/O x 3-4, ecuadorean speaking, but able to speak a bit of Hungarian. Currently on RA, tolerating well, sating at 98%. N s/sx of acute respi distress noted at this time. No SOB, breathing is even and unlabored. SR on the monitor, HR in 60s. IV line at RAC 20g patent and flushing well, saline locked. Noted with HD cath at L chest, dressing is clean and dry. 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 All safety measures in place: bed is locked and at lowest position, bed alarm on, HOB elevated, call light within reach of patient. Will continue to monitor and carry out MD orders.
[2023-02-19] MEDS: CLONIDINE HCL 0.1 MG TABLET PO PRN (19:43)
--- NOTE | 2023-02-19 19:45 | NUR ---
RN NOTE PT'S LATEST BP AT 199/82. PT IS ASYMPTOMATIC AND IN NO DISTRESS. CATAPRES (CLONIDINE) GIVEN ORDERED. WILL CONTINUE TO MONITOR.
[2023-02-19 20:00] VITALS: BP 199/82
[2023-02-19] MEDS: TAMSULOSIN 0.4 MG CAP.SR.24H PO SCH (21:01)
[2023-02-19] MEDS: ATORVASTATIN 40 MG TABLET PO SCH (21:01)
[2023-02-19] MEDS: INSULIN REGULAR, HUMAN 100 UNIT/ML 3 ML VIAL SQ PRN (21:10)
[2023-02-20 00:01] VITALS: BP 168/77
[2023-02-20 04:00] VITALS: BP 168/77
[2023-02-20] MEDS: hydrALAZINE HCL 50 MG TABLET PO SCH ×3 (05:50→17:28)
--- NOTE | 2023-02-20 06:17 | NUR ---
AIRCRAFT DETAIL DRAFTSPERSON CLOSING NOTE NO SIGNIFICANT CHANGE T/O THE NIGHT. VS STABLE EXCEPT FOR BP WHICH REMAINED ELEVATED. ALL DUE MEDS GIVEN INCLUDING BP MEDS. KEPT PT CLEAN AND DRY. TURNED AND REPOSITIONED. WILL ENDORSE TO AM SHIFT NURSE FOR SHANNON.
--- NOTE | 2023-02-20 07:16 | NUR ---
INTEGRATION MANAGER CLOSING NOTE Received patient in bed resting comfortably, patient is A/O x 3-4, jordanian speaking, but able to speak a bit of Armenian. Currently on RA, tolerating well. N s/sx of acute respi distress noted at this time. No SOB, breathing is even and unlabored. SR on monitor, HR 61. IV line at RAC 20g patent and flushing well, saline locked. Noted with HD cath at L chest, dressing is clean and dry. 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 All safety measures in place: bed is locked and at lowest position, bed alarm on, HOB elevated, call light within reach of patient. BED ALARM ON
[2023-02-20] MEDS: BLOOD SUGAR DIAGNOSTIC 1 EACH STRIP IN SCH ×4 (07:36→21:24)
[2023-02-20 08:00] VITALS: BP 138/72
[2023-02-20] MEDS: ASPIRIN EC 81 MG TABLET.DR PO SCH (08:24)
[2023-02-20] MEDS: FERROUS SULFATE (325 MG) 325 MG/TAB TABLET PO SCH (08:24)
[2023-02-20] MEDS: SENNOSIDES 8.6 MG TABLET PO SCH (08:24)
[2023-02-20] MEDS: VIT B CMPLX 3/FA/VIT C/BIOTIN 1 TAB TABLET PO SCH (08:24)
--- NOTE | 2023-02-20 08:48 | NUR ---
WOUND CARE: SACRAL SCAR NOTED. RECOMMENDATIONS MADE FOR SKIN PROTECTION. DISCUSSED WITH NURSING STAFF. MD IN AGREEMENT WITH PLAN OF CARE.
[2023-02-20] MEDS: NIFEdipine XL (30MG) 30 MG TAB PO SCH (09:14)
[2023-02-20] MEDS: LOSARTAN POTASSIUM 50 MG TABLET PO SCH ×2 (09:14→17:28)
[2023-02-20] MEDS: CLONIDINE HCL 0.1 MG TABLET PO PRN ×2 (10:36→16:55)
[2023-02-20] MEDS: METOPROLOL SUCCINATE 50 MG TAB.SR.24H PO SCH (11:46)
--- NOTE | 2023-02-20 11:49 | NUR ---
RN NOTE NOTIFIED DR. ARGUETA THAT MORNING BP MEDICATUIONS WERE GIVEN. BP EARLIER 214/83 AND CLONDINE WAS GIVEN, AFTER RRECHECK BP 202/84 GOING TO GIVE SCHEUDLED PO MEDICATIONS.
[2023-02-20 12:00] VITALS: BP 202/84
--- NOTE | 2023-02-20 13:25 | NUR ---
RN NOTE NOTIFIED DR. ARGUETA THAT AFTER HYDRALAZANINE AND METOPOROL WAS GIVEN 30 MINUTES AGO, RECHECK BP 231/94 . SAID TO RECHECK BP MANUAL. MANUAL BP 195/80,RELAYED TO DR. ARGUETA ORDERED TO GIVE ANOTHER HYDRALAZALINE IV Q6HR PRN FOR SBP >180. ORDERS NOTED AND CARRIED OUT
[2023-02-20] MEDS ORDERED: hydrALAZINE HCL IV 20 MG VIAL IV PRN (14:00)
[2023-02-20 16:00] VITALS: BP 199/88
--- NOTE | 2023-02-20 18:00 | NUR ---
RN NOTE DIALYSIS NURSE REMOVED 2L.
--- NOTE | 2023-02-20 18:28 | NUR ---
RN NOTE AFTER SCHEDULED PO MEDICATIONS, AND BP MEDICATIONS GIVEN. BP RECHECK 183/77
--- NOTE | 2023-02-20 18:40 | NUR ---
rn note pt refuses for linen to be changed at this change, provided education, pt refused
--- NOTE | 2023-02-20 19:19 | NUR ---
MELON PACKER CLOSING NOTE patient in bed resting comfortably, patient is A/O x 3-4, tristanian speaking, but able to speak a bit of Lao. Currently on RA, tolerating well AT 100%. N s/sx of acute respi distress noted at this time. No SOB, breathing is even and unlabored. SR on monitor, HR 62. IV line at RAC 20g patent and flushing well, saline locked. Noted with HD cath at L chest, dressing is clean and dry. 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 All safety measures in place: bed is locked and at lowest position, bed alarm on, HOB elevated, call light within reach of patient. BED ALARM ON.ENDORSED TO DENTAL THERAPIST RN FOR CONTUITY OF CARE.
--- NOTE | 2023-02-20 19:30 | NUR ---
ROTARY HELPER OPENING NOTE Received patient in bed resting comfortably, patient is A/O x 3-4, equatorial guinean speaking, but able to speak a bit of Welsh. Currently on RA, tolerating well, sating at 98%. N s/sx of acute respi distress noted at this time. No SOB, breathing is even and unlabored. SR on the monitor, HR in 60s. IV line at RAC 20g patent and flushing well, saline locked. Noted with HD cath at L chest, dressing is clean and dry. 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 All safety measures in place: bed is locked and at lowest position, bed alarm on, HOB elevated, call light within reach of patient. Will continue to monitor
[2023-02-20 20:00] VITALS: BP 130/76
[2023-02-20] MEDS: TAMSULOSIN 0.4 MG CAP.SR.24H PO SCH (21:24)
[2023-02-20] MEDS: ATORVASTATIN 40 MG TABLET PO SCH (21:24)
[2023-02-21] VITALS: BP 125/70
[2023-02-21] MEDS: hydrALAZINE HCL 50 MG TABLET PO SCH ×4 (00:12→17:15)
[2023-02-21 04:00] VITALS: BP 142/86
--- NOTE | 2023-02-21 06:27 | NUR ---
RN NOTES PATIENT REMAINS STABLE NO SIGNIFICANT CHANGES. ALL DUE MEDSGIVEN ORDERED. WILL ENDORSED TO MORNING SHIFT FOR SHANNON
--- NOTE | 2023-02-21 07:20 | NUR ---
RN OPENING NOTE RECEIVED PATIENT IN BED, AWAKE, A/O X 3-4, VERBALLY RESPONSIVE AND ABLE TO MAKE NEEDS KNOWN. NO SIGNS OF ACUTE DISTRESS NOTED. ON ROOM AIR, TOLERATING WELL. NO SOB NOTED, BREATHING EVEN AND UNLABORED. ON CARDIAC MONITORING SHOWING SINUS RHYTHM, HR #60. PATIENT DENIES ANY PAIN AT THIS TIME. NOTED WITH PERIPHERAL LINE ON RIGHT AC #20G, INTACT AND PATENT, SALINE LOCKED. WITH LEFT CHEST WALL HD CATHETER, INTACT WITH DRESSING CLEAN AND DRY. SAFETY MEASURE IN PLACE.ED IN LOW AND LOCKED POSITION, SIDE RAILS UP X2, CALL LIGHT PLACED WITHIN EASY REACH. WILL CONTINUE TO MONITOR PATIENT.
[2023-02-21] MEDS: BLOOD SUGAR DIAGNOSTIC 1 EACH STRIP IN SCH ×3 (07:45→17:15)
[2023-02-21] MEDS: INSULIN REGULAR, HUMAN 100 UNIT/ML 3 ML VIAL SQ PRN ×3 (07:45→17:16)
[2023-02-21 08:00] VITALS: BP 163/73
[2023-02-21] MEDS: FERROUS SULFATE (325 MG) 325 MG/TAB TABLET PO SCH (08:18)
[2023-02-21] MEDS: SENNOSIDES 8.6 MG TABLET PO SCH (08:18)
[2023-02-21] MEDS: VIT B CMPLX 3/FA/VIT C/BIOTIN 1 TAB TABLET PO SCH (08:18)
[2023-02-21] MEDS: ASPIRIN EC 81 MG TABLET.DR PO SCH (08:19)
[2023-02-21] MEDS: NIFEdipine XL (30MG) 30 MG TAB PO SCH (08:19)
[2023-02-21] MEDS: LOSARTAN POTASSIUM 50 MG TABLET PO SCH ×2 (08:19→17:15)
[2023-02-21] MEDS: METOPROLOL SUCCINATE 50 MG TAB.SR.24H PO SCH (08:19)
[2023-02-21 12:00] VITALS: BP 164/66
[2023-02-21 16:00] VITALS: BP 148/70
--- NOTE | 2023-02-21 18:36 | NUR ---
RN CLOSING NOTE PATIENT IN BED, AWAKE. NO SIGNS OF ACUTE DISTRESS NOTED. REMAINS STABLE ON ROOM AIR, NO SOB NOTED, BREATHING EVEN AND UNLABORED. CONTINUE ON CARDIAC MONITORING SHOWING SINUS RHYTHM, HR @60. PATIENT DENIED ANY PAIN. WITH LEFT CHEST WALL HD CATHETER, INTACT WITH DRESSING CLEAN AND DRY. ALL DUE MEDS GIVEN, TAKEN WELL. SAFETY MEASURE IN PLACE.ED IN LOW AND LOCKED POSITION, SIDE RAILS UP X2, CALL LIGHT PLACED WITHIN EASY REACH. PATIENT FOR DISCHARGE TO [facility], AWAITING PICK-UP. WILL ENDORSE TO NEXT SHIFT.
--- NOTE | 2023-02-21 19:58 | NUR ---
Patient transferred to [facility] via ambulance in a gurney accompanied by 2 EMT's. IV catheter removed aseptically. All belongings sent with patient. Report given to EMT Anjana. VS are WNL.
[2023-02-21 20:00] VITALS: BP 155/70
== END 2023-02-21 20:26 | DRG 199 ==
LOC: ER 11:10 → TELE1 20:04
PROVIDERS: ADMIT Nurse Practitioner Acute Care
PROC: 5A1D70Z Performance of Urinary Filtration, Intermittent, Less than 6 Hours Per Day (ICD-10-PCS; principal; 2023-02-18)
DX: I16.0 Hypertensive urgency (principal); D68.59 Other primary thrombophilia; L97.519 Non-pressure chronic ulcer of other part of right foot with unspecified severity; N18.6 End stage renal disease; D63.8 Anemia in other chronic diseases classified elsewhere; E11.22 Type 2 diabetes mellitus with diabetic chronic kidney disease; E11.42 Type 2 diabetes mellitus with diabetic polyneuropathy; L97.529 Non-pressure chronic ulcer of other part of left foot with unspecified severity; I12.0 Hypertensive chronic kidney disease with stage 5 chronic kidney disease or end stage renal disease; E11.51 Type 2 diabetes mellitus with diabetic peripheral angiopathy without gangrene; E11.621 Type 2 diabetes mellitus with foot ulcer; E78.5 Hyperlipidemia, unspecified; Z99.2 Dependence on renal dialysis; Z79.82 Long term (current) use of aspirin; Z79.899 Other long term (current) drug therapy; Z89.511 Acquired absence of right leg below knee; Z89.512 Acquired absence of left leg below knee; Z87.891 Personal history of nicotine dependence; N40.0 Benign prostatic hyperplasia without lower urinary tract symptoms; J98.11 Atelectasis; Z74.09 Other reduced mobility
CPT/HCPCS: 36415; 71045-TC; 80048-TC; 82962-TC; 83735-TC; 84100-TC; 85025-TC; 86704; 86705; 86706; 86803; 87081-TC; 87340; 90935-TC; A6253; A6403; C9803; G0378; J0360; J1815; J2405; J7030